=== PATIENT | female | born 1975 | race Two or more races ===

== ENCOUNTER → 2021-12-12 10:53 | Outpatient (BNVA) | payer OTHER, SELFPAY | PROVIDERS: PCP Internal Medicine; Visit Provider Nurse Practitioner Family | DX: F45.8 Other somatoform disorders (principal); G47.19 Other hypersomnia; R06.83 Snoring; G47.9 Sleep disorder, unspecified; M54.2 Cervicalgia; M26.609 Unspecified temporomandibular joint disorder, unspecified side | CPT/HCPCS: 99202 ==

== ENCOUNTER → 2021-12-22 15:48 | Outpatient (REF) | payer OTHER, SELFPAY | LOC: HO.SL 15:48 | PROVIDERS: Visit Provider Nurse Practitioner Family | DX: F45.8 Other somatoform disorders (principal); G47.19 Other hypersomnia; G47.9 Sleep disorder, unspecified; R06.83 Snoring | CPT/HCPCS: 95806 ==

== ENCOUNTER → 2022-05-04 11:32 | Outpatient (BNVA) | payer OTHER, SELFPAY | PROVIDERS: PCP Internal Medicine; Visit Provider Nurse Practitioner Family | DX: R00.0 Tachycardia, unspecified (principal); R06.02 Shortness of breath; G43.909 Migraine, unspecified, not intractable, without status migrainosus; M26.609 Unspecified temporomandibular joint disorder, unspecified side; M79.89 Other specified soft tissue disorders | CPT/HCPCS: 99212 ==

== ENCOUNTER → 2022-07-20 11:24 | Outpatient (BNVA) | payer OTHER, SELFPAY | PROVIDERS: PCP Internal Medicine; Visit Provider Nurse Practitioner Family | DX: G43.909 Migraine, unspecified, not intractable, without status migrainosus (principal); M79.89 Other specified soft tissue disorders; M54.50 Low back pain, unspecified; M79.604 Pain in right leg; M79.605 Pain in left leg; R20.2 Paresthesia of skin | CPT/HCPCS: 99212 ==

== ENCOUNTER 2022-07-25 12:15 | Outpatient (REF) | payer OTHER, SELFPAY ==
--- NOTE | ~2022-07-25 | XR_ITS ---
EXAMINATION: XR LUMBOSACRAL SPINE WITH OBLIQUES CLINICAL INFORMATION: Chronic lower back pain with right-sided sciatica. COMPARISON: None available. TECHNIQUE: AP, both oblique, and lateral views of the lumbar spine. Lateral view of the lumbosacral junction. FINDINGS: There are 5 jej-[id number] lumbar vertebra. No acute fracture or spondylolisthesis is identified. The intervertebral disc spaces are maintained. Mild anterior and lateral marginal spurring is present at multiple levels. There is facet arthropathy seen at the L5-S1 level and, to a lesser extent, at the L4-L5 level bilaterally and left side of L3-L4. There is no instability noted on flexion-extension views. No evidence of spondylolysis on oblique views. No significant sacroiliac joint abnormalities appreciated with no widening or fusion seen. XR/XR lumbar spine 6V w bending IMPRESSION: Bilateral facet arthropathy as described above. No acute fracture, spondylolisthesis, or spondylolysis identified.
== END 2022-07-25 12:16 | disposition home or self-care (01) ==
LOC: HO.XRAY 12:15
PROVIDERS: Visit Provider Nurse Practitioner Family
DX: M54.50 Low back pain, unspecified (principal)
CPT/HCPCS: 72114

== ENCOUNTER → 2022-07-27 13:05 | Outpatient (BNVA) | payer OTHER, SELFPAY | PROVIDERS: PCP Internal Medicine; Visit Provider Registered Nurse Emergency | DX: M47.26 Other spondylosis with radiculopathy, lumbar region (principal); R20.2 Paresthesia of skin; M53.3 Sacrococcygeal disorders, not elsewhere classified | CPT/HCPCS: 99202 ==

== ENCOUNTER 2022-08-31 09:10 | Outpatient (REF) | payer OTHER, SELFPAY ==
--- NOTE | 2022-08-31 | EMG_ITS ---
Bilateral tibial and peroneal motor studies were performed. Bilateral superficial peroneal and sural sensory studies were performed. Tibial H reflexes were obtained and paraspinal muscles were tested with a needle. IMPRESSION: Chronic right lower lumbar radiculopathy. MD ANDREWS Chaudhary/AVANI / [id number]
== END 2022-08-31 09:11 | disposition home or self-care (01) ==
LOC: HO.NEURO 09:10
PROVIDERS: PCP Internal Medicine; Visit Provider Nurse Practitioner Family
DX: M79.604 Pain in right leg (principal); M79.605 Pain in left leg; M54.50 Low back pain, unspecified
CPT/HCPCS: 95886; 95911

== ENCOUNTER 2022-09-22 13:36 | Outpatient (REF) | payer OTHER, SELFPAY ==
--- NOTE | ~2022-09-22 | MR_ITS ---
EXAMINATION: MR LUMBAR SPINE WITHOUT CONTRAST CLINICAL INFORMATION: Radiculopathy of the lumbar spine. COMPARISON: Lumbar spine radiograph 07/25/2022. TECHNIQUE: MRI of the lumbar spine was obtained using routine sequences without contrast. FINDINGS: Alignment is normal in the sagittal dimension. Vertebral heights are preserved. No acute bone marrow signal changes. There is disc desiccation at multiple levels without substantial loss of intervertebral disc height. The tip of the conus medullaris is located at the level of L2. 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 Visualized distal cord signal intensity is normal. At T12-L1 the annular contour is normal. No canal or neuroforaminal compromise. At L1-L2 the annular contour is normal. No canal stenosis. No mass effect on the traversing or foraminal nerve roots. At L2-L3 the annular contour is normal. No canal stenosis. No mass effect on the traversing or foraminal nerve roots. At L3-L4 the annular contour is normal. No canal stenosis. No mass effect on the traversing or foraminal nerve roots. At L4-L5 the annular contour is normal. Bilateral facet degenerative change. No canal stenosis. No mass effect on the traversing or foraminal nerve roots. At L5-S1 there is a right subarticular annular fissure associated with a slightly bulging disc. Bilateral facet degenerative change. No canal stenosis. No mass effect on the traversing or foraminal nerve roots. Limited visualization of the retroperitoneal anatomy reveals no abnormal finding. Psoas and paraspinal muscle groups are grossly symmetric. MR/MR lumbar spine wo con IMPRESSION: There is a right subarticular annular fissure associated with a bulging disc at L5-S1. There is degenerative arthrosis of the articular facet joints at L4-L5 and L5-S1. Otherwise unremarkable examination. No canal stenosis. No mass effect on the traversing or foraminal nerve roots.
== END 2022-09-22 13:37 | disposition home or self-care (01) ==
LOC: HO.MRI 13:36
PROVIDERS: PCP Internal Medicine; Visit Provider Registered Nurse Emergency
DX: M54.16 Radiculopathy, lumbar region (principal); R20.2 Paresthesia of skin
CPT/HCPCS: 72148

== ENCOUNTER 2022-09-25 13:24 | Outpatient (AMB) | payer OTHER, SELFPAY ==
[2022-09-25 13:31] VITALS: BMI 30.3
--- NOTE | 2022-09-25 13:31 | MHC.OFFVIS ---
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 Complaints include pain over varicosities, swelling of lower extremities, cramping, fatigue, and heaviness of the lower extremities. It has been affecting there daily activities including walking and grocery shopping. It is noted more so in right leg. Patient denies any previous venous surgery or injections. Patient denies any history of DVT/ PE. Patient denies any history of phlebitis. Trial of compression includes - [id number] They now present for vascular evaluation regarding their varicose veins. [facility] Medical History Arthritis GERD (gastroesophageal reflux disease) Surgical History H/O laparoscopy H/O wrist surgery H/O: History of gallbladder removal History of partial hysterectomy Surgical history of tubal ligation Family History Mother Diabetes Vertigo HTN (hypertension) Father Liver cancer Lung cancer History of throat cancer Social History Alcohol intake: never Patient Tobacco Use Status: Current everyday Tobacco user Cigarette Packs Per Day: 10 Review of Systems Const Reports as per HPI ENT Reports no additional complaints Card Denies chest pain, Denies chest pain at rest and Denies chest pain with activity Resp Denies chest congestion and Denies cough GI Reports no additional complaints Musc Details: pain over varicosities, aching of lower extremities, swelling, cramping, heaviness and tiredness, itching Denies abnormal gait Skin/Breast Reports pruritus and Denies wounds Neuro Reports no additional complaints and Denies abnormal gait Psych Denies no additional complaints Physical Exam Vital Signs: BMI result Body Mass Index 30.3 Const General: cooperative, healthy appearing and comfortable Orientation/consciousness: oriented to person, oriented to place and oriented to time Neck Carotids: no bruits Chest Chest palpation & inspection: normal inspection of the chest and normal palpation of entire chest wall Resp Effort & Inspection: normal respiratory effort and able to speak in complete sentences Cardio Rate: regular rate Heart sounds: S1 normal heart sound present and S2 normal heart sound present Peripheral pulses: Peripheral pulses 2+ throughout GI Inspection: Yes normal to inspection Skin Other: +2 edema, CEAP Classification C4 - skin color changes Ep - Etiology Primary As - superficial veins P - reflux General skin exam: dry skin Neuro General: oriented to person, oriented to place and oriented to time Extrem Right lower extremity: full ROM, normal capillary refill and edema Left lower extremity: full ROM, normal capillary refill and edema Psych Mental Status: mental status grossly normal Assessment & Plan Assessment & Plan (1) Varicose veins of right lower extremity with inflammation: Code(s): I83.11 - Varicose veins of right lower extremity with inflammation Plan: In short, the patient has evidence of venous insufficiency. I have discussed the pathophysiology with the patient. In addition I have provided informational material regarding venous disease to the patient. We have discussed conservative measures including compression, elevation, and exercise. I have also provided a handout regarding appropriate use of compression stockings and where to purchase good compression stockings as well. I have taken the liberty of ordering venous insufficiency testing with the patient. They will follow up with me after testing. The patient had an opportunity to ask questions regarding the treatment plan. All questions were answered. Imaging studies, laboratory studies and physical exam results were discussed and reviewed in detail. No major barriers to understanding were identified. The patient expressed understanding and agreement with the above treatment plan. The patient is aware they should contact our office by phone for worsening of the current condition or the appearance of new symptoms. Thank you for allowing me to participate in the vascular care of this patient. If you have any questions or concerns regarding the treatment for the above condition please do not hesitate to contact me. The office telephone contact is [phone]. This note is constructed using voice recognition software. While every effort has been made to ensure accuracy, vacuum kettle cook errors may have been included. Thank you for allowing me to participate in the care of your patient. Yours sincerely, Bert Manning MD, FACS, R.P.V.I. Orders: Orders US venous duplex LE BI 1 Week I83.11 - Varicose veins of right lower extremity with inflammation Coding Level of Care Code New Pt Level 4 (79696) Diagnoses Varicose veins of right lower extremity with inflammation I83.11
== END 2022-09-25 13:58 | disposition home or self-care (01) ==
PROVIDERS: PCP Internal Medicine; Visit Provider Surgery Vascular Surgery
DX: I83.11 Varicose veins of right lower extremity with inflammation (principal)
CPT/HCPCS: 99203

== ENCOUNTER → 2022-09-25 13:24 | Outpatient (BNVA) | payer OTHER, SELFPAY | PROVIDERS: PCP Internal Medicine; Visit Provider Surgery Vascular Surgery | DX: I83.11 Varicose veins of right lower extremity with inflammation (principal) | CPT/HCPCS: 99202 ==

== ENCOUNTER 2022-10-04 10:24 | Outpatient (REF) | payer OTHER, SELFPAY ==
--- NOTE | ~2022-10-04 | US_ITS ---
EXAMINATION: US LOWER EXTREMITY VENOUS (REFLUX EXAM), BILATERAL CLINICAL INDICATION: Varicose veins of the right lower extremity COMPARISON: None. TECHNIQUE: Color flow triplex imaging and compression Doppler was performed to evaluate both the deep and the superficial systems bilaterally. To evaluate the superficial system, the examination was performed in the upright position. Color-flow Doppler ultrasound and compression ultrasound were utilized. In addition, maneuvers were utilized to demonstrate reflux. FINDINGS: RIGHT: 1. DEEP VENOUS ULTRASOUND OF THE RIGHT LOWER EXTREMITY: Common Femoral Vein: Compressible, normal respiratory variation and augmented flow. Popliteal Vein: Compressible, normal augmentation. Deep Venous Reflux: There is no evidence of reflux in the deep system in either the common femoral vein or the popliteal vein. There is no evidence of a Gutierrez's cyst. 2. SUPERFICIAL ULTRASOUND WITH DOPPLER OF RIGHT LOWER EXTREMITY: RIGHT GREAT SAPHENOUS VEIN: Saphenofemoral Junction: 7 mm. No reflux. Proximal Thigh: 5 mm. No reflux. Mid Thigh: 4 mm. No reflux. Above Knee: 5 mm. No reflux. Below Knee: 3 mm. No reflux. Mid Calf: 2 mm. No reflux. Ankle: 2 mm. No reflux. DUPLICATED GREAT SAPHENOUS VEIN: Yes, laterally Saphenofemoral junction: 4 mm. No reflux. Mid thigh: 2 mm. No reflux. RIGHT SMALL SAPHENOUS VEIN: Proximal: Not seen Distal: 2 mm. No reflux. PERFORATORS: None LEFT: 1. DEEP VENOUS ULTRASOUND OF THE LEFT LOWER EXTREMITY: Common Femoral Vein: Compressible, normal respiratory variation and augmented flow. Popliteal Vein: Compressible, normal augmentation. Deep Venous Reflux: There is no evidence of reflux in the deep system in either the common femoral vein or the popliteal vein. There is no evidence of a Gutierrez's cyst. 2. SUPERFICIAL ULTRASOUND WITH DOPPLER OF LEFT LOWER EXTREMITY: LEFT GREAT SAPHENOUS VEIN: Saphenofemoral Junction: 7 mm. No reflux. Proximal Thigh: 5 mm. No reflux. Mid Thigh: 4 mm. No reflux. Above Knee: 5 mm. No reflux. Below Knee: 3 mm. No reflux. Mid Calf: 2 mm. No reflux. Ankle: 2 mm. No reflux. DUPLICATED GREAT SAPHENOUS VEIN: Yes, laterally Saphenofemoral junction: 2 mm. No reflux Mid thigh: 2 mm. No reflux LEFT SMALL SAPHENOUS VEIN: Proximal: 2 mm. No reflux. Distal: 2 mm. No reflux. PERFORATORS: None US/US venous duplex LE BI IMPRESSION: 1. No evidence of deep venous thrombosis. 2. The saphenous systems are competent bilaterally. Abnormal lower extremity venous reflux times: Superficial and deep calf veins: >500 ms Femoropopliteal veins: >1000 ms Perforating veins: >350 ms Gume N, Katrina J, Milly L, Susan AK, Corey SS, Shankar Yougner M, Brenda WH. Definition of venous reflux in lower-extremity veins.J Vasc Surg. 2003; [phone].
== END 2022-10-04 10:25 | disposition home or self-care (01) ==
LOC: HO.US 10:24
PROVIDERS: Visit Provider Surgery Vascular Surgery
DX: I83.11 Varicose veins of right lower extremity with inflammation (principal)
CPT/HCPCS: 93970

== ENCOUNTER 2022-10-17 13:26 | Outpatient (AMB) | payer OTHER, SELFPAY ==
[2022-10-17 13:29] VITALS: BP 151/75; PULSE 112; RESP 14; O2SAT 96; BMI 30.3
--- NOTE | 2022-10-17 13:29 | MHC.OFFVIS ---
Intake Vital Signs 10/17/22 13:29 Height 4 ft 11 in Weight 150 lb BMI 30.3 BP 151/75 H Blood Pressure Location Lt brachial Position Sitting Respiration 14 Pulse 112 H Pulse Source Pulse Oximeter Pulse Oximetry (%) 96 Oxygen Delivery Method Room Air Intake Visit Reasons: Follow up / MRI Results Allergies Sulfa (Sulfonamide Antibiotics) Allergy (Mild, Verified 10/17/22 13:30) Unknown trimethoprim Allergy (Mild, Verified 10/17/22 13:30) Unknown cephalexin Allergy (Verified 10/17/22 13:30) Unknown Medication List - Last Reconciled 10/17/22 by Nia Zimmerman LPN acetaminophen (Tylenol) 325 mg PO QID PRN albuterol sulfate 90 mcg/actuation (Ventolin HFA) 2 puffs inhalation Q4-6H PRN 30 days atomoxetine 40 mg PO QAM cetirizine 10 mg PO DAILY PRN epinephrine 0.3 mg IM Q4H PRN escitalopram oxalate (Lexapro) 10 mg PO DAILY gabapentin mg PO galcanezumab-gnlm (Emgality Pen) 120 mg subcut ONCE 30 days omeprazole 20 mg PO DAILY ondansetron 4 mg PO Q8H riboflavin (vitamin B2) (Vitamin B-2) 200 mg PO QID tizanidine 2 mg PO BID PRN 30 days zolpidem 5 mg PO BEDTIME PRN HPI HPI Comments History of Present Illness Details Ann is a very pleasent 46 year old female who presents to the office today for follow up to review MRI. MRI results reviewed with patient, as per below. Patient reports that her pain persists. She has not started PT, she thought that was on hold until after MRI. She has been doing HEP without relief, taking tylenol with minimal relief. She will take tizanidine which helps some but causes her to be drowsy so she uses sparingly. She continues to report pain worse with standing, doing the dishes, cooking, going up stairs and sitting for extended period of time. She was evaluated by vascular for the BLE edema, has venous US and follow up appt is scheduled with them in a couple weeks. She is using compression as tolerated. Prior: Ann is a pleasant 46-year-old female who presents today on referral from Neurology for evaluation and management of her chronic lower back pain. Patient is also complaining of bilateral pedal edema, numbness, pain, discoloration and alteration in temperature. Patient complaining of lower back pain for last 4 years that has been getting progressively worse. Patient has been taking Tylenol as needed for her pain with minimal relief. She has not tried physical therapy recently, she states that she is fearful that it is going to exacerbate her pain. She currently also takes gabapentin as prescribed by her doctor which she reports makes her sleepy but does not improve her pain. She was recently seen by Neurology and had an x-ray, results pending, EMG is ordered and scheduled for next week. Patient reports the pain is worse on the right side with radiation down into her buttock and thigh, at times down her right leg into her foot. Pain is exacerbated by sitting for too long, standing for too long, movement, walking and doing housework. Pain today 08/14. Patient reports the pain is impacting her ability to sleep normally, perform activities of daily living and to function normally. In terms of muscle damage condition is described as pulsing, throbbing, pounding, shooting, pinching, wrenching, tingling, sore, hurting, aching, heavy, tiring, exhausting, spreading, radiating, piercing, cool and cold. Patient denies red flag symptoms including loss of bowel or bladder or saddle anesthesia. Patient also complaining of bilateral feet swelling, paresthesia, burning and pins and needles that has been going on for approximately 1 year. She was initially referred to podiatry for evaluation which she says was without findings. Has never seen vascular or had any vascular studies. Patient is taking gabapentin which she states does not help with her bilateral foot pain. Past medical history significant for arthritis, headaches and GERD. Past surgical history significant for wrist surgery, , gallbladder removal, partial hysterectomy, tubal ligation. Patient endorses 1/2 pack a day tobacco use, denies alcohol or illicit drug use. Patient denies implantable devices, defibrillator or pacemaker. COUNT INCLUDES THE [facility] Medical History Arthritis GERD (gastroesophageal reflux disease) Surgical History H/O laparoscopy H/O wrist surgery H/O: History of gallbladder removal History of partial hysterectomy Surgical history of tubal ligation Family History Mother Diabetes Vertigo HTN (hypertension) Father Liver cancer Lung cancer History of throat cancer Social History Alcohol intake: never Patient Tobacco Use Status: Current everyday Tobacco user Cigarette Packs Per Day: 10 Review of Systems Const All systems reviewed & are unremarkable except as noted in HPI and below Physical Exam Vital Signs: Last Vital Signs Pulse 112 H 10/17/22 13:29 Resp 14 10/17/22 13:29 BP 151/75 H 10/17/22 13:29 Pulse Ox 96 10/17/22 13:29 Oxygen Delivery Method Room Air 10/17/22 13:29 BMI result Body Mass Index 30.3 Const General: cooperative Orientation/consciousness: patient oriented x3 Resp Effort & Inspection: normal respiratory effort and able to speak in complete sentences Back/Spine/Pelvis Other: Able to transition from sit to stand unassisted. Ambulates with bilaterally normal heel strike and toe off Visual inspection without gross abnormality Tender to palpation over PSIS bilaterally Nontender to palpation over midline vertebrae Strength: 5/5 BLE Gaenslen positive bilaterally MAYA positive bilaterally Thigh thrust positive bilaterally Neuro General: patient oriented x3 Results Reviewed Results Reviewed: 09/22/2022 MR LUMBAR SPINE WITHOUT CONTRAST FINDINGS: Alignment is normal in the sagittal dimension. Vertebral heights are preserved. No acute bone marrow signal changes. There is disc desiccation at multiple levels without substantial loss of intervertebral disc height. The tip of the conus medullaris is located at the level of L2. 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 Visualized distal cord signal intensity is normal. At T12-L1 the annular contour is normal. No canal or neuroforaminal compromise. At L1-L2 the annular contour is normal. No canal stenosis. No mass effect on the traversing or foraminal nerve roots. At L2-L3 the annular contour is normal. No canal stenosis. No mass effect on the traversing or foraminal nerve roots. At L3-L4 the annular contour is normal. No canal stenosis. No mass effect on the traversing or foraminal nerve roots. At L4-L5 the annular contour is normal. Bilateral facet degenerative change. No canal stenosis. No mass effect on the traversing or foraminal nerve roots. At L5-S1 there is a right subarticular annular fissure associated with a slightly bulging disc. Bilateral facet degenerative change. No canal stenosis. No mass effect on the traversing or foraminal nerve roots. Limited visualization of the retroperitoneal anatomy reveals no abnormal finding. Psoas and paraspinal muscle groups are grossly symmetric. IMPRESSION: There is a right subarticular annular fissure associated with a bulging disc at L5-S1. There is degenerative arthrosis of the articular facet joints at L4-L5 and L5-S1. Otherwise unremarkable examination. No canal stenosis. No mass effect on the traversing or foraminal nerve roots. Assessment & Plan Assessment & Plan (1) Sacroiliac joint dysfunction of both sides: Code(s): M53.3 - Sacrococcygeal disorders, not elsewhere classified (2) Lumbar spondylosis: Code(s): M47.816 - Spondylosis without myelopathy or radiculopathy, lumbar region (3) Facet arthritis of lumbar region: Code(s): M47.816 - Spondylosis without myelopathy or radiculopathy, lumbar region (4) Lumbar radiculopathy: Code(s): M54.16 - Radiculopathy, lumbar region (5) Paresthesia of bilateral legs: Code(s): R20.2 - Paresthesia of skin Giovanna Juarez is a pleasant 46-year-old female who presented to the office today for follow up bilateral lower back pain. MRI reviewed with patient today, no concerns for nerve root compression. History, physical exam and provocative physical exam consistent with bilateral sacroiliac joint dysfunction and lumbar facet arthropathy. Will trial baclofen in place of tizanidine to see if this offers relief of pain with less sedating effects. Diclofenac 50 po daily prn pain. Patient advised do not take any OTC NSAIDS while taking this medication. Order for PT eval and treat placed. Patient will call after several weeks and update if PT is helping her pain. If no relief with NSAIDS/PT will schedule for fluoroscopy guided bilateral diagnostic SIJ injections with local anesthetic. Discussed options for treatment including diagnostic interventional testing, steroid injections, peripheral nerve stimulation with Sprint, RFA and more permanent neuromodulation. All questions and concerns have been answered and patient agrees with the plan. Follow up after injections and sooner if needed. Follow up after PT, sooner if needed. Orders: Orders PT Evaluation and Treatment Today M53.3 - Sacrococcygeal disorders, not elsewhere classified Medications: New baclofen 5 mg PO BID PRN 30 tabs 0RF muscle spasm diclofenac sodium 50 mg PO DAILY PRN 30 tabs 0RF pain Discontinued tizanidine no driving or drinking alcohol while taking this medication. may cause drowsiness. Discontinued Reason: Doctor's Order 2 mg PO BID 30 days PRN 60 tabs 0RF muscle spasticity Coding Level of Care Code Est Pt Level 4 (02549) Diagnoses Sacroiliac joint dysfunction of both sides M53.3 Lumbar spondylosis M47.816 Facet arthritis of lumbar region M47.816 Lumbar radiculopathy M54.16 Paresthesia of bilateral legs R20.2
== END 2022-10-17 14:20 | disposition home or self-care (01) ==
PROVIDERS: PCP Internal Medicine; Visit Provider Registered Nurse Emergency
DX: M53.3 Sacrococcygeal disorders, not elsewhere classified (principal); M47.816 Spondylosis without myelopathy or radiculopathy, lumbar region; M54.16 Radiculopathy, lumbar region; R20.2 Paresthesia of skin
CPT/HCPCS: 99214

== ENCOUNTER → 2022-10-17 13:26 | Outpatient (BNVA) | payer OTHER, SELFPAY | PROVIDERS: PCP Internal Medicine; Visit Provider Registered Nurse Emergency | DX: M53.3 Sacrococcygeal disorders, not elsewhere classified (principal); M47.26 Other spondylosis with radiculopathy, lumbar region; R20.2 Paresthesia of skin | CPT/HCPCS: 99212 ==

== ENCOUNTER 2022-10-26 13:52 | Outpatient (AMB) | payer OTHER, SELFPAY ==
[2022-10-26 14:16] VITALS: BMI 30.3
--- NOTE | 2022-10-26 14:16 | MHC.OFFVIS ---
Intake Vital Signs 10/26/22 14:16 Height 4 ft 11 in Weight 150 lb BMI 30.3 Intake Visit Reasons: follow up 10/04/2022 Intake Note: follow up 10/04/2022, pt states bilateral LE swelling w/ pins and needles, Right LE worse than Left LE Accompanied by: Self / Same As Patient Allergies Sulfa (Sulfonamide Antibiotics) Allergy (Mild, Verified 10/26/22 14:18) Unknown trimethoprim Allergy (Mild, Verified 10/26/22 14:18) Unknown cephalexin Allergy (Verified 10/26/22 14:18) Unknown HPI follow up 10/04/2022 HPI Details Very pleasant 46-year-old female presents for follow-up surveillance regarding venous insufficiency. She notes some swelling and discomfort of the lower extremities. She has had no interval changes. She now presents for follow-up with venous insufficiency testing. [facility] Medical History GERD (gastroesophageal reflux disease) Arthritis Surgical History H/O: History of gallbladder removal History of partial hysterectomy H/O laparoscopy Surgical history of tubal ligation H/O wrist surgery Family History Mother Diabetes Vertigo HTN (hypertension) Father Liver cancer Lung cancer History of throat cancer Social History Alcohol intake: never Patient Tobacco Use Status: Current everyday Tobacco user Cigarette Packs Per Day: 10 Review of Systems Const All systems reviewed & are unremarkable except as noted in HPI and below Reports no additional complaints ENT Reports Normal hearing present Card Denies chest pain, Denies chest pain at rest, Denies chest pain with activity and Denies pedal edema Resp Denies cough GI Denies abdominal pain Musc Denies abnormal gait, Denies muscle cramps and Denies radiating pain into limb Skin/Breast Denies skin ulcer and Denies wounds Neuro Reports Normal hearing present and Denies abnormal gait Psych Reports no additional complaints Physical Exam Vital Signs: BMI result Body Mass Index 30.3 Const General: cooperative, healthy appearing and comfortable Orientation/consciousness: oriented to person, oriented to place and oriented to time HEENT Head: Yes normal to inspection Neck Neck: Yes normal visual inspection Carotids: no bruits Chest Chest palpation & inspection: normal inspection of the chest Resp Effort & Inspection: normal respiratory effort and able to speak in complete sentences Auscultation: clear to auscultation bilaterally, no crackles, no rales, no rhonchi and no wheezes Cardio Rate: regular rate Rhythm: regular rhythm Heart sounds: S1 normal heart sound present and S2 normal heart sound present Bruits: no carotid bruits Peripheral pulses: Peripheral pulses 2+ throughout GI Inspection: Yes normal to inspection Skin Wounds: no wounds Hair: normal Neuro General: oriented to person, oriented to place and oriented to time Cranial nerves: Yes CN's II-XII intact bilaterally and Yes Normal hearing present Cognition (Neuro): normal cognition Motor exam (neuro): 5/5 motor strength present throughout Extrem Other: venous exam: No significant superficial varicosities or spider telangiectasias, minimal edema General: No clubbing, No cyanosis and No edema Psych Appearance: grossly normal Mental Status: mental status grossly normal Speech and movement: Normal speech and movement present Results Reviewed Results Reviewed: Brief summary of venous insufficiency testing is as follows: right great saphenous vein: negative right small saphenous vein: negative right accessory vein: none present left great saphenous vein: negative left small saphenous vein: negative left accessory vein: none present Please note there is no evidence of any venous aneurysms or significant tortuosity Assessment & Plan Assessment & Plan (1) Varicose veins of right lower extremity with inflammation: Code(s): I83.11 - Varicose veins of right lower extremity with inflammation Plan: In short patient is negative for any significant venous insufficiency a. I do believe that some of her lower extremity discomfort may be more related to her back. We did discuss routine conservative measures including compression elevation and exercise. She will follow up with us on an as-needed basis. Thank you for allowing us to assist in her care. Coding Level of Care Code Est Pt Level 4 (19761) Diagnoses Varicose veins of right lower extremity with inflammation I83.11
== END 2022-10-26 14:45 | disposition home or self-care (01) ==
PROVIDERS: PCP Internal Medicine; Visit Provider Surgery Vascular Surgery
DX: I83.11 Varicose veins of right lower extremity with inflammation (principal)
CPT/HCPCS: 99213

== ENCOUNTER → 2022-10-26 13:52 | Outpatient (BNVA) | payer OTHER, SELFPAY | PROVIDERS: PCP Internal Medicine; Visit Provider Surgery Vascular Surgery | DX: I83.11 Varicose veins of right lower extremity with inflammation (principal) | CPT/HCPCS: 99212 ==

== ENCOUNTER 2022-11-27 15:00 | Outpatient (RCR) | payer OTHER, SELFPAY ==
--- NOTE | 2022-11-02 16:47 | MHC.PT.EP ---
[facility] [place] Office [place] Office [place] Office [address] [phone] F: [phone] F: [phone] F: [phone] F: [phone] Physical Therapy Plan of Care Date of Evaluation: 11/02/22 Date of Surgery: Diagnosis: bilateral sacroiliac joint dysfunction (MD Dx) bilateral lumbar radiculopathy with R annular fissure at L5/S1 seen on MRI (PT Dx) Assessment: Patient is a pleasant 46 y.o. female who is referred to PT by Divya Peng CNP with Dx of bilateral sacroiliac joint dysfunction. PT diagnosis is bilateral lumbar radiculopathy with R annular fissure at L5/S1 seen on MRI. Patient impairments include poor posture, antalgic gait, limited lumbar ROM, weakness in hips and core. Patient current functional limitations are standing to wash dishes, sweep/mop, cleaning, prolonged walking (more than 15 mins), prolonged sitting (more than 30 mins), sits down to get dressed, pinch in R low back with lifting R arm, squat and get up from low surfaces, difficulty sleeping. Patient will benefit from skilled PT to address aforementioned impairments and functional limitations to meet established goals. Frequency and Duration: The patient will be seen 2x/week for 4 weeks Short Term Goals: 2 weeks Patient demonstrates consistency and independence with HEP to self manage symptoms. Patient is able to understand and perform movements that centralize bilateral LE symptoms. Mortar Carrier Goals: 4 weeks Patient presents with increased R hip flexion 5/5 to ascend/descend stairs reciprocally with railing. Patient presents with increased lumbar extension 15 degrees to improve posture and to be able to stand to wash dishes. Treatment Plan: Modalities to reduce pain, spasms and effusion. Manual therapy to restore motion and function. Therapeutic exercise to improve strength and flexibility. Neuromuscular re-education for posture and balance. Therapeutic activities to return to functional activities of daily living. Electronically signed by: Emma Hawkins, PT, DPT Please sign and return to therapist. Thank you for your referral.
--- NOTE | 2023-01-16 11:50 | MHC.PT.DC ---
[facility] [place] Office [place] Office [place] Office [address] [phone] F: [phone] F: [phone] F: [phone] F: [phone] Physical Therapy Discharge Report Diagnosis: bilateral sacroiliac joint dysfunction (MD Dx) bilateral lumbar radiculopathy with R annular fissure at L5/S1 seen on MRI (PT Dx) Date of Surgery: Date of Evaluation: 11/02/22 Date of Discharge: 01/16/23 Treatments to Date: 3 Cancellations to Date: No Shows to Date: 6 Discharge Status: Patient Elected to Stop Visit Non-compliance Discharge Summary: Katerina only attended 3 PT sessions then ceased attending PT on her own accord, not showing to the remainder of her scheduled visits. The assessment of her last PT treatment on 11/06/2022 reads, She persists with radicular symptoms after prolonged prone lying and manual therapy to promote extension. Therefore I wanted to trial traction, discussed this intervention with patient and she agreed to try. She was able to tolerate a therapeutic level of 50# and reported centralization of symptoms in R foot with slight increase in low back afterwards. Electronically signed by: Emma Hawkins, PT, DPT Please sign and return to therapist. Thank you for your referral.
== END 2023-01-16 11:51 | disposition home or self-care (01) ==
LOC: HO.PT 15:00
PROVIDERS: PCP Internal Medicine; Visit Provider Registered Nurse Emergency
DX: M53.3 Sacrococcygeal disorders, not elsewhere classified (principal); M47.816 Spondylosis without myelopathy or radiculopathy, lumbar region; M54.16 Radiculopathy, lumbar region
CPT/HCPCS: 97012; 97110; 97140; 97161; 97535

== ENCOUNTER 2023-01-26 13:54 | Outpatient (AMB) | payer OTHER, SELFPAY ==
[2023-01-26 14:29] VITALS: BP 124/84; BMI 30.3
--- NOTE | 2023-01-26 14:29 | MHC.OFFVIS ---
Intake Vital Signs 01/26/23 14:29 Height 4 ft 11 in Weight 150 lb BMI 30.3 BP 124/84 Blood Pressure Location Rt brachial Position Sitting Intake Visit Reasons: 2m f/u headache - Confirmed Intake Note: Patient presents for 2 month follow up headache. I still get them but there a little better since the injections. Allergies Sulfa (Sulfonamide Antibiotics) Allergy (Mild, Verified 01/26/23 14:31) Unknown trimethoprim Allergy (Mild, Verified 01/26/23 14:31) Unknown cephalexin Allergy (Verified 01/26/23 14:31) Unknown Medication List - Last Reconciled 01/26/23 by CIERA Patterson acetaminophen (Tylenol) 325 mg PO QID PRN albuterol sulfate 90 mcg/actuation (Ventolin HFA) 2 puffs inhalation Q4-6H PRN 30 days atomoxetine 40 mg PO QAM baclofen 5 mg PO BID PRN buspirone 7.5 mg PO BID cetirizine 10 mg PO DAILY PRN diclofenac sodium 50 mg PO DAILY PRN epinephrine 0.3 mg IM Q4H PRN escitalopram oxalate (Lexapro) 10 mg PO DAILY gabapentin mg PO galcanezumab-gnlm (Emgality Pen) 120 mg subcut ONCE 30 days lorazepam (Ativan) 0.5 mg PO DAILY PRN omeprazole 20 mg PO DAILY ondansetron 4 mg PO Q8H riboflavin (vitamin B2) (Vitamin B-2) 200 mg PO QID zolpidem 5 mg PO BEDTIME PRN HPI HPI Comments History of Present Illness Details 47-yr-old female presents for f/u visit. Pt reports she was started on Lorazepam and then Buspirone to help her manage panic attacks- which is starting to help, will increase her Buspirone to tid in Feb. She is f/b psychiatry. She also had a recent ER eval of food becoming stuck in her throat- she has a h/o esophageal narrowing She underwent a f/u esophageal biopsy and esophageal dilation. 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 She is trying to reduce her smoking. Her PCP recently ordered her patches. The headaches have been better since starting Emgality. Now she is having 1-2 migraines days per every 2 weeks, sometimes can have 3 migarien days in a week. The migraines are much less severe. Currently using Tylenol- as she thought she could not use it with the Emgality. She does continue to have low back which moves into the RLE. Upon review of the L-spine XR, MRI, and EMG- showing L5-S1 disc bulge and chronic right lower lumbar radiculopathy. We did send her to Pain management, who referred her to PT. PT was unhelpful. She will consider trying a lumbar injection when she sees pain management again. 08/31/22, BLE EMG/NCS IMPRESSION: Chronic right lower lumbar radiculopathy. 09/22/22, MR/MR lumbar spine wo con IMPRESSION: There is a right subarticular annular fissure associated with a bulging disc at L5-S1. There is degenerative arthrosis of the articular facet joints at L4-L5 and L5-S1. Otherwise unremarkable examination. No canal stenosis. No mass effect on the traversing or foraminal nerve roots. 07/25/22, XR/XR lumbar spine 6V w bending IMPRESSION: Bilateral facet arthropathy as described above. No acute fracture, spondylolisthesis, or spondylolysis identified. [facility] Medical History GERD (gastroesophageal reflux disease) Arthritis Surgical History H/O: History of gallbladder removal History of partial hysterectomy H/O laparoscopy Surgical history of tubal ligation H/O wrist surgery Family History Mother Diabetes Vertigo HTN (hypertension) Father Liver cancer Lung cancer History of throat cancer Social History Alcohol intake: never Patient Tobacco Use Status: Current everyday Tobacco user Cigarette Packs Per Day: 10 Review of Systems Const All systems reviewed & are unremarkable except as noted in HPI and below Physical Exam Vital Signs: Last Vital Signs BP 124/84 01/26/23 14:29 BMI result Body Mass Index 30.3 Const General: cooperative and no acute distress Orientation/consciousness: patient oriented x3 HEENT Head: Yes normocephalic Resp Effort & Inspection: normal respiratory effort and able to speak in complete sentences Neuro General: patient oriented x3, gait normal and CN's II-XI intact bilaterally Cognition (Neuro): normal cognition Motor exam (neuro): 5/5 motor strength present throughout Psych Appearance: grossly normal Mental Status: mental status grossly normal Speech and movement: Normal speech and movement present Affect: normal affect Attitude: cooperative Thought process: Normal thought process present Thought content: Normal thought content present Insight: Good insight present (Psych) Judgement: Good judgement present (Psych) Assessment & Plan Assessment & Plan (1) Migraine: Code(s): G43.909 - Migraine, unspecified, not intractable, without status migrainosus (2) Low back pain: Code(s): M54.50 - Low back pain, unspecified (3) Lumbar spondylosis: Code(s): M47.816 - Spondylosis without myelopathy or radiculopathy, lumbar region (4) Lumbar radiculopathy: Code(s): M54.16 - Radiculopathy, lumbar region Plan For sleep: Monitor sleep Monitor TMJD s/s. Recent HST- no evidence for sleep apnea. For low back pain, BLE swelling/hypoesthesia/pain: Reviewed recent work-up: L5-S1 disc bulge and chronic right lower lumbar radiculopathy. F/u w/ pain management as scheduled. ? For acute headache treatment: Continue Sumatriptan 50-100mg prn at onset of migraine, may repeat in 2 hrs, max 200mg/day. Acute migraine medication contraindications: Sumatripatn 25-50mg- ineffective. Excedrin- ineffective. Iburpfen- ineffective. Migraine prevention medication contraindications: none at this time ? For headache prevention medication: Continue Riboflavin 400mg qam Continue Emgality 120mg sc q month. Previous preventive migraine medication trials: Topiramate 50mg- ineffective. Magnesium 400mg qhs- not effective Migraine prevention medication contraindications: Amitriptyline- d/t tachycardia. BBs- d/t asthma/SOB s/s ? f/u in 5-6 months or sooner prn. Medications: New sumatriptan succinate 50 - 100 mg orally at onset of headache, may repeat in 2 hrs PRN; max 2 tabs per day or 4 tabs/week (may take with Tylenol) 12 tabs 6RF migraine headache 30 days Coding Level of Care Code Est Pt Level 4 (38085) Diagnoses Migraine G43.909 Low back pain M54.50 Lumbar spondylosis M47.816 Lumbar radiculopathy M54.16
== END 2023-01-26 15:21 | disposition home or self-care (01) ==
PROVIDERS: PCP Internal Medicine; Visit Provider Nurse Practitioner Family
DX: G43.909 Migraine, unspecified, not intractable, without status migrainosus (principal); M54.50 Low back pain, unspecified; M47.816 Spondylosis without myelopathy or radiculopathy, lumbar region; M54.16 Radiculopathy, lumbar region
CPT/HCPCS: 99214

== ENCOUNTER → 2023-01-26 13:54 | Outpatient (BNVA) | payer OTHER, SELFPAY | PROVIDERS: PCP Internal Medicine; Visit Provider Nurse Practitioner Family | DX: G43.909 Migraine, unspecified, not intractable, without status migrainosus (principal); M54.50 Low back pain, unspecified; M47.816 Spondylosis without myelopathy or radiculopathy, lumbar region; M54.16 Radiculopathy, lumbar region | CPT/HCPCS: 99212 ==

== ENCOUNTER 2024-07-30 11:25 | Outpatient (AMB) | payer OTHER, SELFPAY ==
--- NOTE | 2024-07-30 11:26 | MHC.OFFVIS ---
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 Peripheral edema is noted, with persistent swelling in the feet despite diuretic therapy. The edema is associated with coldness and discoloration, particularly in cold environments. The patient has a history of sciatica, with radiating pain and numbness in the legs. MRI findings indicate arthritis, but no neural impingement. Neuropathic symptoms include burning, tingling, and sensitivity in the feet, with limited relief from previous treatments. A nerve conduction study is planned to assess these symptoms further. 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 and requires frequent rest - Aberrant Drug Related Behaviors: None reported [facility] Medical History GERD (gastroesophageal reflux disease) Arthritis Surgical History H/O: History of gallbladder removal History of partial hysterectomy H/O laparoscopy Surgical history of tubal ligation H/O wrist surgery Family History Mother Diabetes Vertigo HTN (hypertension) Father Liver cancer Lung cancer History of throat cancer Social History Alcohol intake: never Patient Tobacco Use Status: Current everyday Tobacco user Cigarette Packs Per Day: 10 Review of Systems Const Details: - Musculoskeletal: Reports chronic low back pain, radiating posterior thighs bilaterally, and peripheral edema - Neurological: Reports numbness, tingling, and burning in feet - Cardiovascular: Denies chest pain or palpitations - Respiratory: Denies dyspnea or cough - Gastrointestinal: Denies abdominal pain or changes in bowel habits Physical Exam Vital Signs: Last Vital Signs Pulse 97 07/30/24 11:27 Resp 16 07/30/24 11:27 BP 139/77 07/30/24 11:27 Pulse Ox 99 07/30/24 11:27 Oxygen Delivery Method Room Air 07/30/24 11:27 BMI result Body Mass Index 29.5 Const Other: General: awake, alert, oriented. Answers questions appropriately. Fully engaged in examination. Skin: warm, dry, intact HEENT: Normocephalic. Hearing intact. Cardiac: External chest normal in appearance. Respiratory: No cough, audible wheezing or stridor. Abdomen: without gross distension. MS: No obvious swelling or deformities. Able to stand on bilateral tiptoes and bilateral heels.? Able to transition from sit to stand unassisted. Ambulates with bilaterally normal heel strike and toe off SLR negative bilaterally Facet loading positive Tenderness over midline lumbar vertebrae and lumbar paraspinal muscles Nontender or bilateral PSIS Neurological: Oriented to person, place, time and situation. Thought process intact. No gait abnormalities appreciated. Psychiatric: Appropriate mood and affect. Good judgment and insight. Results Reviewed Results Reviewed: 09/22/2022 MR LUMBAR SPINE WITHOUT CONTRAST FINDINGS: Alignment is normal in the sagittal dimension. Vertebral heights are preserved. No acute bone marrow signal changes. There is disc desiccation at multiple levels without substantial loss of intervertebral disc height. The tip of the conus medullaris is located at the level of L2. 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 Visualized distal cord signal intensity is normal. At T12-L1 the annular contour is normal. No canal or neuroforaminal compromise. At L1-L2 the annular contour is normal. No canal stenosis. No mass effect on the traversing or foraminal nerve roots. At L2-L3 the annular contour is normal. No canal stenosis. No mass effect on the traversing or foraminal nerve roots. At L3-L4 the annular contour is normal. No canal stenosis. No mass effect on the traversing or foraminal nerve roots. At L4-L5 the annular contour is normal. Bilateral facet degenerative change. No canal stenosis. No mass effect on the traversing or foraminal nerve roots. At L5-S1 there is a right subarticular annular fissure associated with a slightly bulging disc. Bilateral facet degenerative change. No canal stenosis. No mass effect on the traversing or foraminal nerve roots. Limited visualization of the retroperitoneal anatomy reveals no abnormal finding. Psoas and paraspinal muscle groups are grossly symmetric. IMPRESSION: There is a right subarticular annular fissure associated with a bulging disc at L5-S1. There is degenerative arthrosis of the articular facet joints at L4-L5 and L5-S1. Otherwise unremarkable examination. No canal stenosis. No mass effect on the traversing or foraminal nerve roots. Assessment & Plan Assessment & Plan (1) Sacroiliac joint dysfunction of both sides: Code(s): M53.3 - Sacrococcygeal disorders, not elsewhere classified Category: Medical (2) Lumbar spondylosis: Code(s): M47.816 - Spondylosis without myelopathy or radiculopathy, lumbar region Category: Medical (3) Facet arthritis of lumbar region: Code(s): M47.816 - Spondylosis without myelopathy or radiculopathy, lumbar region Category: Medical (4) Lumbar radiculopathy: Code(s): M54.16 - Radiculopathy, lumbar region Category: Medical (5) Paresthesia of bilateral legs: Code(s): R20.2 - Paresthesia of skin Category: Medical (6) Low back pain: Code(s): M54.50 - Low back pain, unspecified Category: Medical Plan The patient will undergo physical therapy to address chronic low back pain, as it has been two years since the last session. A nerve conduction study is scheduled to investigate neuropathic symptoms in the feet, including burning and tingling sensations. If no improvement with physical therapy diagnostic injections will be administered to evaluate arthritis in the back, with options for a temporary nerve stimulator or nerve ablation based on the response. I discussed with the patient the plan to repeat physical therapy and conduct a nerve conduction study to further evaluate her symptoms. We also talked about diagnostic injections to assess arthritis in her back, with potential follow-up treatments depending on the initial response. The patient was informed about the risks and benefits of each procedure, and the importance of maintaining a pain diary for insurance purposes was emphasized. Patient was informed and verbally consented to the use of an ambient scribe for clinic note documentation during this visit. Orders: Orders NE electromyogram (EMG) Today R20.2 - Paresthesia of skin PT Evaluation and Treatment Today M47.816 - Spondylosis without myelopathy or radiculopathy, lumbar region, M54.50 - Low back pain, unspecified NE nerve conduction velocity Today R20.2 - Paresthesia of skin Patient Instructions: - Attend scheduled physical therapy sessions. Patient requesting PT in [facility] proximity to her home - Complete the nerve conduction study as planned. - Follow up with the clinician after completing physical therapy and diagnostic procedures. Coding Level of Care Code Est Pt Level 3 (50052) Complex EM visit Add On G2211 Diagnoses Sacroiliac joint dysfunction of both sides M53.3 Lumbar spondylosis M47.816 Facet arthritis of lumbar region M47.816 Lumbar radiculopathy M54.16 Paresthesia of bilateral legs R20.2 Low back pain M54.50
[2024-07-30 11:27] VITALS: BP 139/77; PULSE 97; RESP 16; O2SAT 99; BMI 29.5
--- OUTSIDE RECORDS SUMMARY | 2024-07-30 13:35 | XMS_ITS | Clinical Summary ---
Author Organization [address] Address [address] [place] [id number] Phone Care Team Providers Care Ship Fastener Name Role Phone Tevin Quinteros MD Primary Care Provider [phone] Allergies Active Allergy Reactions Criticality Noted Date Comments Cephalexin 10/30/2012 Medications fesoterodine (TOVIAZ) 4 mg tabletIndicatio ns:Urgency of urination Take 1 tablet (4 mg total) by mouth daily. 30 tablet 5 01/14/2014 Active PROAIR RESPICLICK 90 mcg/actuation Inhale 2 puffs into the lungs every 4 (four) hours. 1 each 5 11/16/2015 Active azithromycin (ZITHROMAX Z-MARCIA) 250 MG Tab Take 2 tabs today and 1 tab for the next 4 days 6 each 11/16/2015 Active predniSONE (DELTASONE) 20 MG tablet Take 3 tabs ( 60 ) mg every morning for the next 5 days 15 tablet 11/16/2015 Active pregabalin (LYRICA) 100 MG capsule Take 100 mg by mouth 2 (two) times daily.. Active oxyCODONE-aceta minophen (PERCOCET) 10-325 mg per tablet Take 1 tablet by mouth.. Active ibuprofen (ADVIL,MOTRIN) 800 MG tablet Take 1 tablet (800 mg total) by mouth every 6 (six) hours as needed.. 60 tablet 01/20/2017 Active Active Problems Problem Noted Date Diagnosed Date Urgency of urination 01/14/2014 Renal mass 01/14/2014 Stress incontinence 01/14/2014 Lower urinary tract infectious disease 4 Overview (10/19/2015): IMO 2016 R2.1 update change Immunizations Immunization Administration Dates Next Due Influenza, split virus, trivalent, Preservative Free 02/21/2017 Social History Tobacco Use Types Packs/Day Years Used Date Smoking Tobacco: Every Day Smokeless Tobacco: Never Alcohol Use Standard Drinks/Week Comments No 0 (1 standard drink = 0.6 oz pur e alcohol) Comments No Sex and Gender Information Value Date Recorded Sex Assigned at Not on file Legal Sex Female 7:23 AM EST Gender Identity Not on file Sexual Orientation Not on file Last Filed Vital Signs Vital Sign Reading Time Taken Comments Blood Pressure 114/67 05/08/2017 1:27 PM EDT Pulse 72 05/08/2017 1:27 PM EDT Temperature 36.2 C (97.2 F) 05/08/2017 9:51 AM EDT Respiratory Rate 18 05/08/2017 1:27 PM EDT Oxygen Saturation 93% 05/08/2017 1:27 PM EDT Inhaled Oxygen Concentration - - Weight 59.9 kg (132 lb 0.9 oz) 05/08/2017 9:51 A M EDT Height 149.9 cm (4' 11 ) 09/25/2015 3:58 PM EDT Body Mass Index 26.67 09/25/2015 3:58 PM EDT Plan of Treatment Health Maintenance Due Date Last Done Comments HIV screening 1986 Hepatitis C screening 12/15/1991 Tetanus adult (Td q 10,TDAP once) 1993 Cervical cancer screening 1994 Breast cancer screening 2013 Lipid disorder screening 2013 Colon cancer screening, Colonoscopy 2018 Diabetes screening 05/08/2020 05/08/2017, 10/30/2012, 04/07/2011 Covid-19 vaccine series ( - 2023- season) 2023 Pneumococcal Vaccine (50+ years) (1 of 1 - PCV) 12/15/2023 Shingles vaccine (Shingrix) (1 of 2 - Shingrix (RZV) 2 Dose Standard Series) 12/15/2023 Influenza vaccine 10/06/2024 02/21/2017 RSV Immunization (1 - 1-dose 75+ series) 2048 Meningococcal Vaccine Aged Out No kary gilbert eligible based on patient's age to complete this topic Procedures Procedure Name Priority Date/Time Associated Diagnosis Comments BASIC METABOLIC PANEL STAT 05/08/2017 11:29 AM EDT from Last 3 Months or Most Recently Relevant to Health Maintenance Results * (ABNORMAL) Basic metabolic panel (05/08/2017 11:29 AM EDT) Sodium 140 137 - 145 mmol/L 05/08/2017 11:55 AM [facility] Potassium 3.7 3.5 - 5.1 mmol/L 05/08/2017 11:55 AM [facility] Chloride 104 98 - 107 mmol/L 05/08/2017 11:55 AM [facility] CO2 26 22 - 30 mmol/L 05/08/2017 11:55 AM [facility] Anion Gap 10 7 - 16 05/08/2017 11:55 AM [facility] Glucose 104(H) 70 - 100 mg/dL 05/08/2017 11:55 AM [facility] BUN 7 7 - 17 mg/dL 05/08/2017 11:55 AM [facility] Creatinine 0.57 0.52 - 1.04 mg/dL 05/08/2017 11:55 AM [facility] Calcium 9.6 8.4 - 10.2 mg/dL 05/08/2017 11:55 AM [facility] BUN/Creatinine Ratio 12.3 05/08/2017 11:55 AM [facility] eGFR (Afr Amer) >60 >60 mL/min/1.7 3m2 05/08/2017 11:55 AM [facility] Comment: Values under 60mL/min/1.73m2 may indicate CKD if noted for more than 3 months. eGFR is only valid if creatinine is at steady state. eGFR (NON -Tamiko n) >60 >60 mL/min/1.7 3m2 05/08/2017 11:55 AM [facility] Comment: Values under 60mL/min/1.73m2 may indicate CKD if noted for more than 3 months. eGFR is only valid if creatinine is at steady state. Blood specimen (specimen) Venipuncture / Unknown 05/08/2017 11:29 AM EDT 05/08/2017 11:34 AM EDT Eugene RENEE LAB BLOOD ORDERABLES Final R esult [facility] [address] [place] [address], [facility] [phone] from Last 3 Months or Most Recently Relevant to Health Maintenance Insurance [place] Care Teams Ship Fastener Relationship Specialty Start Date End Date Tevin Quinteros MD PCP - General Emergency Medicine 01/11/16
== END 2024-07-30 11:53 | disposition home or self-care (01) ==
LOC: HO.PMC 11:26
PROVIDERS: PCP Internal Medicine; Visit Provider Registered Nurse Emergency
DX: M53.3 Sacrococcygeal disorders, not elsewhere classified (principal); M47.816 Spondylosis without myelopathy or radiculopathy, lumbar region; M54.16 Radiculopathy, lumbar region; R20.2 Paresthesia of skin; M54.50 Low back pain, unspecified
CPT/HCPCS: 99213; G2211

== ENCOUNTER → 2024-07-30 11:25 | Outpatient (BNVA) | payer OTHER, SELFPAY | PROVIDERS: PCP Internal Medicine; Visit Provider Registered Nurse Emergency | DX: M47.816 Spondylosis without myelopathy or radiculopathy, lumbar region (principal); M53.3 Sacrococcygeal disorders, not elsewhere classified; M54.16 Radiculopathy, lumbar region; R20.2 Paresthesia of skin; M54.50 Low back pain, unspecified | CPT/HCPCS: 99212 ==

== ENCOUNTER 2024-08-21 14:10 | Outpatient (REF) | payer OTHER, SELFPAY ==
--- NOTE | 2024-08-21 14:13 | EMG_ITS ---
Chief complaint: Chronic lower back pain, radiating to both legs, with numbness on feet Reason for referral: Evaluate for lumbar radiculopathy Referred by: Divya Peng NP Procedure done: Bilateral lower extremity NCS/EMG Precautions and/or limitations: None The limb temperature was monitored continuously and remained between 32-36 degrees C during the performance of the NCS. Nerve Conduction Studies Anti Sensory Summary Table ?Stim Site NR Onset (ms) Norm Onset (ms) Peak (ms) Norm Peak (ms) O-P Amp (?V) Norm O-P Amp Site1 Site2 Delta-0 (ms) Dist (cm) Shawn (m/s) Norm Shawn (m/s) Left Sural Anti Sensory (Lat Mall) Calf ? 2.7 3.3 <4.0 8.9 >5.0 Calf Lat Mall 2.7 14.0 52 Right Sural Anti Sensory (Lat Mall) Calf ? 3.1 3.7 <4.0 7.6 >5.0 Calf Lat Mall 3.1 14.0 45 Motor Summary Table ?Stim Site NR Onset (ms) Norm Onset (ms) O-P Amp (mV) Norm O-P Amp iAmp (mV) Amp (1st) (%) Site1 Site2 Delta-0 (ms) Dist (cm) Shawn (m/s) Norm Shawn (m/s) Right Peroneal Motor (Ext Dig Brev) Ankle ? 3.8 <4.0 5.0 >2.5 5.5 100.0 Ankle Ext Dig Brev 3.8 0.0 B Fib ? 9.1 5.3 5.8 106.0 B Fib Ankle 5.3 25.0 47 >40 Poplt ? 10.1 5.2 5.6 104.0 Poplt B Fib 1.0 4.5 45 >40 Left Tibial Motor (Abd Thompson Brev) Ankle ? 3.1 <5 6.8 >2.5 9.6 100.0 Ankle Abd Thompson Brev 3.1 0.0 Knee ? 10.4 8.8 11.3 129.4 Knee Ankle 7.3 33.0 45 >40 Right Tibial Motor (Abd Thompson Brev) Ankle ? 3.7 <5 8.9 >2.5 12.4 100.0 Ankle Abd Thompson Brev 3.7 0.0 Knee ? 10.7 8.0 10.4 89.9 Knee Ankle 7.0 33.0 47 >40 EMG ?Side Muscle Nerve Root Ins Act Fibs Psw Amp Dur Poly Recrt Int Pat Comment Right AbdHallucis MedPlantar S1-2 Nml Nml Nml Nml Nml 0 Nml Complete Right AntTibialis Dp Br Peron L4-5 Nml Nml Nml Nml Nml 0 Nml Complete Right PostTibialis Tibial L5, S1 Nml Nml Nml Nml Nml 0 Nml Complete Right MedGastroc Tibial S1-2 Nml Nml Nml Nml Nml 0 Nml Complete Right VastusMed Femoral L2-4 Nml Nml Nml Nml Nml 0 Nml Complete Left AbdHallucis MedPlantar S1-2 Incr 1+ 1+ Nml Nml 0 Nml Complete Left AntTibialis Dp Br Peron L4-5 Nml Nml Nml Nml Nml 0 Nml Complete Left PostTibialis Tibial L5, S1 Nml Nml Nml Nml Nml 0 Nml Complete Left MedGastroc Tibial S1-2 Incr 1+ 1+ Nml Nml 0 Nml Complete Left VastusMed Femoral L2-4 Nml Nml Nml Nml Nml 0 Nml Complete Paraspinal EMG ?Side Muscle Nerve Root Ins Act Fibs Psw Comment Right Lumbar Upper Rami Nml Nml Nml Right Lumbar Mid Rami Nml Nml Nml Right Lumbar Lower Rami Nml Nml Nml Left Lumbar Upper Rami Nml Nml Nml Left Lumbar Mid Rami Nml Nml Nml Left Lumbar Lower Rami Nml Nml Nml FINDINGS: All motor and sensory nerves tested showed normal latencies, amplitudes and conduction velocities. Concentric needle EMG was performed in selected muscles of the bilateral lower extremity and lumbar paraspinals. Study revealed signs of electric abnormalities as shown in the table above. Left mg and AH showed increased insertional activity, PSWs and fibrillations. Lumbar paraspinals did not show denervation. IMPRESSION: 1. This is an abnormal study. 2. There is electrodiagnostic findings suggestive of left S1 radiculopathy. 3. There is no electrodiagnostic evidence for peroneal neuropathy, tibial neuropathy, lumbosacral plexopathy, or peripheral neuropathy. CLINICAL COMMENT: Further clinical correlation recommended. Thank you for your kind referral. Meera Calixto MD, LUIS Board Certified, [place] [employer] and [employer] (ABPMR) Board Certified, [place] Board [employer] Electro[employer] (ABEM) CODIN 00997 x 2 MTDD
== END 2024-08-21 14:11 | disposition home or self-care (01) ==
LOC: HO.NEURO 14:10
PROVIDERS: Visit Provider Registered Nurse Emergency
DX: R20.2 Paresthesia of skin (principal); M54.50 Low back pain, unspecified; G89.29 Other chronic pain; R94.131 Abnormal electromyogram [EMG]
CPT/HCPCS: 95886; 95909

== ENCOUNTER → 2024-08-21 14:13 | Outpatient (BNV) | payer OTHER, SELFPAY | PROVIDERS: Visit Provider Physical Medicine & Rehabilitation | DX: M54.16 Radiculopathy, lumbar region (principal) | CPT/HCPCS: 95886; 95909 ==

== ENCOUNTER 2024-09-03 09:12 | Outpatient (AMB) | payer OTHER, SELFPAY ==
--- NOTE | 2024-09-03 09:19 | MHC.OFFVIS ---
Vital Signs 09/03/24 09:21 Height 4 ft 11 in Weight 146 lb BMI 29.5 BP 134/83 Blood Pressure Location Rt brachial Position Sitting Respiration 16 Pulse 107 H Pulse Source Pulse Oximeter Pulse Oximetry (%) 97 Oxygen Delivery Method Room Air Intake Visit Reasons: Follow up [facility] Required: No Accompanied by: Self / Same As Patient Allergies Sulfa (Sulfonamide Antibiotics) Allergy (Mild, Verified 09/03/24 09:23) Unknown trimethoprim Allergy (Mild, Verified 09/03/24 09:23) Unknown cephalexin Allergy (Verified 09/03/24 09:23) Unknown HPI Comments Details: The patient is a 48-year-old female presenting with chronic pain and neuropathy symptoms. She reports that the pain is most severe in the morning, describing it as a sensation of pins and needles in both feet, which improves after about 20 minutes of movement. The patient denies having diabetes, but experiences neuropathy symptoms. Recent EMG reviewed, results as per below. The patient also reports shooting pain on the left side, which radiates down the leg, particularly when performing activities such as washing dishes. She describes the pain as severe enough to require sitting down to alleviate it, and it is accompanied by a sensation that her back might snap. A previous MRI conducted two years ago revealed a disc bulge at L5-S1 and arthritis, but no nerve compression was noted at that time. The patient has not yet undergone physical therapy due to scheduling delays, she is scheduled to start in October. - Onset: Pain is most severe in the morning. - Quality: Described as pins and needles sensation in both feet. - Location: Bilateral feet, radiating down the left leg. - Exacerbating factors: Activities such as washing dishes. - Relieving factors: Movement improves symptoms after about 20 minutes. - Affect: Pain impacts daily activities, requiring the patient to sit down during severe episodes. - Analgesia: Previous use of gabapentin and ibuprofen with limited relief - Adverse Effects: None reported. - Activities of Daily Living: Pain interferes with activities such as washing dishes. - Aberrant Drug Related Behaviors: None reported. [facility] Medical History GERD (gastroesophageal reflux disease) Arthritis Surgical History H/O: History of gallbladder removal History of partial hysterectomy H/O laparoscopy Surgical history of tubal ligation H/O wrist surgery Family History Mother Diabetes Vertigo HTN (hypertension) Father Liver cancer Lung cancer History of throat cancer Social History Alcohol intake: never Patient Tobacco Use Status: Current everyday Tobacco user Cigarette Packs Per Day: 10 Review of Systems Const Details: - Neurological: Reports pins and needles sensation in both feet, shooting pain down the left leg. Denies diabetes. - Musculoskeletal: Reports pain in the back and legs, swelling in the leg, and tingling sensations. Physical Exam Exam Exam: General: awake, alert, oriented. Answers questions appropriately. Fully engaged in examination. Skin: warm, dry, intact HEENT: Normocephalic. Hearing intact. Cardiac: External chest normal in appearance. Respiratory: No cough, audible wheezing or stridor. Abdomen: without gross distension. MS: No obvious swelling or deformities. Able to transition from sit to stand unassisted. Ambulates with bilaterally normal heel strike and toe off SLR negative bilaterally Facet loading positive Tenderness over midline lumbar vertebrae and lumbar paraspinal muscles Nontender or bilateral PSIS Neurological: Oriented to person, place, time and situation. Thought process intact. No gait abnormalities appreciated. Psychiatric: Appropriate mood and affect. Good judgment and insight. Vital Signs: Last Vital Signs Pulse 107 H 09/03/24 09:21 Resp 16 09/03/24 09:21 BP 134/83 09/03/24 09:21 Pulse Ox 97 09/03/24 09:21 Oxygen Delivery Method Room Air 09/03/24 09:21 BMI result Body Mass Index 29.5 Const Other: Results Reviewed Results Reviewed: 08/21/24 EMG FINDINGS: All motor and sensory nerves tested showed normal latencies, amplitudes and conduction velocities. Concentric needle EMG was performed in selected muscles of the bilateral lower extremity and lumbar paraspinals. Study revealed signs of electric abnormalities as shown in the table above. Left mg and AH showed increased insertional activity, PSWs and fibrillations. Lumbar paraspinals did not show denervation. IMPRESSION: 1. This is an abnormal study. 2. There is electrodiagnostic findings suggestive of left S1 radiculopathy. 3. There is no electrodiagnostic evidence for peroneal neuropathy, tibial neuropathy, lumbosacral plexopathy, or peripheral neuropathy. 09/22/2022 MR LUMBAR SPINE WITHOUT CONTRAST FINDINGS: Alignment is normal in the sagittal dimension. Vertebral heights are preserved. No acute bone marrow signal changes. There is disc desiccation at multiple levels without substantial loss of intervertebral disc height. The tip of the conus medullaris is located at the level of L2. 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 Visualized distal cord signal intensity is normal. At T12-L1 the annular contour is normal. No canal or neuroforaminal compromise. At L1-L2 the annular contour is normal. No canal stenosis. No mass effect on the traversing or foraminal nerve roots. At L2-L3 the annular contour is normal. No canal stenosis. No mass effect on the traversing or foraminal nerve roots. At L3-L4 the annular contour is normal. No canal stenosis. No mass effect on the traversing or foraminal nerve roots. At L4-L5 the annular contour is normal. Bilateral facet degenerative change. No canal stenosis. No mass effect on the traversing or foraminal nerve roots. At L5-S1 there is a right subarticular annular fissure associated with a slightly bulging disc. Bilateral facet degenerative change. No canal stenosis. No mass effect on the traversing or foraminal nerve roots. Limited visualization of the retroperitoneal anatomy reveals no abnormal finding. Psoas and paraspinal muscle groups are grossly symmetric. IMPRESSION: There is a right subarticular annular fissure associated with a bulging disc at L5-S1. There is degenerative arthrosis of the articular facet joints at L4-L5 and L5-S1. Otherwise unremarkable examination. No canal stenosis. No mass effect on the traversing or foraminal nerve roots. Assessment & Plan Assessment & Plan (1) Lumbar spondylosis: Code(s): M47.816 - Spondylosis without myelopathy or radiculopathy, lumbar region Category: Medical (2) Facet arthritis of lumbar region: Code(s): M47.816 - Spondylosis without myelopathy or radiculopathy, lumbar region Category: Medical (3) Lumbar radiculopathy: Code(s): M54.16 - Radiculopathy, lumbar region Category: Medical (4) Paresthesia of bilateral legs: Code(s): R20.2 - Paresthesia of skin Category: Medical (5) Low back pain: Code(s): M54.50 - Low back pain, unspecified Category: Medical (6) Lumbar disc herniation: Code(s): M51.26 - Other intervertebral disc displacement, lumbar region Category: Medical Plan The plan includes attempting to repeat the MRI to assess any changes in the patient's condition, particularly focusing on the disc bulge at L5-S1 and potential nerve compression at S1. Additionally, the MRI will be scheduled at a facility in [place] that offers an open MRI to accommodate the patient's previous discomfort with enclosed spaces. The patient is on a cancellation list for physical therapy, and efforts will be made to expedite this process. Patient was informed and verbally consented to the use of an ambient scribe for clinic note documentation during this visit. Orders: Orders MR lumbar spine wo con Today M47.816 - Spondylosis without myelopathy or radiculopathy, lumbar region, M51.26 - Other intervertebral disc displacement, lumbar region, M54.16 - Radiculopathy, lumbar region, M54.50 - Low back pain, unspecified, R20.2 - Paresthesia of skin Patient Instructions: - Follow up with physical therapy scheduling and attend sessions as soon as possible. - Await notification for MRI scheduling at the [facility]. - Report any worsening of symptoms or new symptoms to the clinic immediately. Coding Level of Care Code Est Pt Level 3 (67927) Complex EM visit Add On G2211 Diagnoses Lumbar spondylosis M47.816 Facet arthritis of lumbar region M47.816 Lumbar radiculopathy M54.16 Paresthesia of bilateral legs R20.2 Low back pain M54.50 Lumbar disc herniation M51.26
[2024-09-03 09:21] VITALS: BP 134/83; PULSE 107; RESP 16; O2SAT 97; BMI 29.5
--- OUTSIDE RECORDS SUMMARY | 2024-09-03 09:41 | XMS_ITS | Clinical Summary ---
Author Organization [facility] [address] [place] [address] [place] [address] Phone Care Team Providers Care Inspector Canned Food Reconditioning Name Role Phone Patrick Pena MD Primary Care Provider [phone] Allergies Active Allergy Reactions Criticality Noted Date Comments Cephalexin Hives 10/08/2019 Fruit Extracts 11/10/2019 Pollen food syndrome Sulfa (Sulfonamide Antibiotics) Itching 11/14/2019 Trimethoprim Itching 11/14/2019 Medications acetaminophen (TYLENOL) 500 mg tablet Take 1 tablet (500 mg total) by mouth every 6 (six) hours if needed. Active cetirizine (ZyrTEC) 10 mg tablet Take 1 tablet (10 mg total) by mouth 1 (one) time each day. 4 Active EPINEPHrine (EpiPen 2-Garrett) 0.3 mg/0.3 mL injection Inject 1 Device as directed as needed (anaphylaxis) . Use as directed 4 Active furosemide (LASIX) 20 mg tablet Take 1 tablet (20 mg total) by mouth 1 (one) time each day if needed (lower extremity swelling). 90 tablet 5 Active albuterol HFA (PROAIR HFA ; PROVENTIL HFA ; VENTOLIN HFA) 90 mcg/actuation inhalerIndicatio ns:Mild intermittent asthma without complication Inhale 2 puffs by mouth every 4 (four) hours if needed for wheezing. Inhale 2 Puffs into the lungs every 4 hours as needed for Cough or Shortness of Breath. 6.7 g 2 5 Active nicotine (NICODERM CQ) 14 mg/[address] 1 patch on the skin 1 (one) time each day at the same time. 30 each 5 09/13/19 25 Active albuterol HFA (PROAIR HFA ; PROVENTIL HFA ; VENTOLIN HFA) 90 mcg/actuation inhaler Inhale 2 Puffs into the lungs every 4 hours as needed for Cough or Shortness of Breath. 4 08/14/19 25 Discontin ued(Reord er) Active Problems Problem Noted Date Diagnosed Date Chronic right-sided low back pain with right-corry ed sciatica 03/08/2023 Peripheral neuropathy 03/08/2023 Venous insufficiency of both lower extremities 0 03/08/2023 Esophageal dysmotilities 05/19/2020 Esophageal dysphagia 05/19/2020 Dermatographism 01/14/2020 ADHD (attention deficit hyperactivity disorder) 11/14/2019 Depression 11/14/2019 Hypertriglyceridemia 11/14/2019 Lordosis 11/14/2019 Prediabetes 11/14/2019 Allergic conjunctivitis, bilateral 11/10/2019 Anxiety 11/10/2019 Cyst of right kidney 11/10/2019 Perennial allergic rhinitis 11/10/2019 Pollen-food allergy 11/10/2019 Psoriasis 11/10/2019 Sciatic nerve pain 11/10/2019 Eosinophilic esophagitis 11/03/2019 Encounters Date Type Department Care Team Description 08/13/2024 10:30 AM EDT Office Visit [facility] [address] [phone] Khushbu Peraza PA Other polyneuropathy (Primary Dx); Cigarette smoker; Mild intermittent asthma without complication; Venous insufficiency of both lower extremities; Prediabetes; Left wrist pain 07/14/2024 1:27 PM EDT - 07/14/2024 11:59 PM EDT Hospital Encounter [address] [phone] Left wrist pain Discharge Disposition: Home or Self Care 07/14/2024 1:00 PM EDT Office Visit Adult [address] [phone] Khushbu Peraza PA Venous insufficiency of both lower extremities (Primary Dx); Left wrist pain; Chronic right-sided low back pain with right-sided sciatica; Prediabetes; Hypertriglyceridemia; Encounter for screening mammogram for malignant neoplasm of breast 07/11/2024 Telephone Adult Medicine [address] [phone] Patrick Pena MD Foot Swelling from Last 3 Months Surgical History Surgery Date Site/Laterality Comments SECTION 1989 PROCEDURE: HISTORICAL ; COMMENT: 1992, 1999 PARTIAL HYSTERECTOMY 2005 PROCEDURE: IA SUPRACERVICAL ABDL HYSTER W/WO RMVL TUBE OVARY CHOLECYSTECTOMY 2000 PROCEDURE: LAPAROSCOPY, CHOLECYSTECTOMY TUBAL LIGATION PROCEDURE: HISTORICAL TUBAL LIGATION Medical History Medical History Date Comments Sciatic nerve pain DX:Sciatic ne rve pain Eosinophilic esophagitis 11/03/2019 DX:Eosi nophilic esophagitis ADHD (attention deficit hype ractivity disorder) 11/14/2019 DX:ADHD (attention deficit hyperactivity disorder) Depression 11/14/2019 DX:Depression Pollen-food allergy 11/10/2019 DX:Pollen-fo od allergy Perennial allergic rhinitis 11/10/2019 DX:P erennial allergic rhinitis Cyst of right kidney 11/10/2019 DX:Cyst of right kidney Anxiety 11/10/2019 DX:Anxiety Allergic conjunctivitis, bilateral 11/10/2019 DX:Allergic conjunctivitis, bilateral Lordosis 11/14/2019 DX:Lordosis Prediabetes 11/14/2019 DX:Prediabetes Hypertriglyceridemia 11/14/2019 DX:Hypertri glyceridemia Esophageal reflux DX:Esophageal reflux Gastro-esophageal reflux dis ease without esophagitis DX:Gastro-esophageal reflux disease without esophagitis Food impaction of esophagus, subsequent encounter DX:Food impaction of esophag us, subsequent encounter Family History Medical History Relation Name Comments Liver cancer Father Lung cancer Father Throat cancer Father Colon cancer Maternal Grandmother Asthma Mother Diabetes Mother Hypertension Mother Other: cancer- unknown Paternal Grandmother Other: allergic rhinitis Sister Other: food allergies Sister Asthma Son Eczema Son Relation Name Status Comments Father Maternal Grandfather Maternal Grandmother Mother Alive Paternal Grandfather Paternal Grandmother Sister Son Social History Tobacco Use Types Packs/Day Years Used Date Smoking Tobacco: Every Day Cigarettes Smokeless Tobacco: Never Alcohol Use Standard Drinks/Week Comments Yes 0 (1 standard drink = 0.6 oz pur e alcohol) Comments Unknown Sex and Gender Information Value Date Recorded Sex Assigned at Not on file Legal Sex Female 10:17 PM EST Gender Identity Not on file Sexual Orientation Not on file Obstetrics History Last Filed Vital Signs Vital Sign Reading Time Taken Comments Blood Pressure 124/79 08/13/2024 10:13 AM EDT Pulse 102 08/13/2024 10:13 AM EDT Temperature 36.4 C (97.6 F) 08/13/2024 10:13 AM EDT Respiratory Rate 16 08/13/2024 10:13 AM EDT Oxygen Saturation 95% 08/13/2024 10:13 AM EDT Inhaled Oxygen Concentration - - Weight 67 kg (147 lb 12.8 oz) 08/13/2024 10:13 A M EDT Height 149.9 cm (4' 11 ) 08/13/2024 10:13 AM EDT Body Mass Index 29.85 08/13/2024 10:13 AM EDT Plan of Treatment Upcoming Encounters Date Type Department Care Team (Late st Contact Info) Description 09/11/2024 1:00 PM EDT Consult Orthopedic Surgery - [place] [address] [facility] [address] [place] [address] Monica Lundberg PA [address] [facility] [address] [place] [address] 12/15/2024 11:00 AM EST Consult Vascular Surgery - [place] [address] [facility] [address] [facility] [address] [place] [address] Elaine Edgar PA [address] [facility] [address] [place] [address] 12/17/2024 8:30 AM EST Office Visit Adult Medicine [address] [phone] Khushbu Peraza PA [address] [place] [id number] Health Maintenance Due Date Last Done Comments Breast Cancer Screening 1973 DTaP,Tdap,and Td Vaccines (1 - Tdap) 1992 Hepatitis B Vaccines (1 of 3 - 19+ 3-dose series) 1992 Pneumococcal Vaccine: 50+ Years (1 of 2 - PCV) 1992 Cervical Cancer Screening: P ap Smear 1994 HIV Screening 01/07/2022 Hepatitis C Screening 01/07/2022 Social Influencers of Health Screening 01/07/2022 COVID-19 Vaccine (4 - 2023-2 5 season) 2023 01/07/2021, 07/02/2020, 06/04/2020 Zoster Vaccines (1 of 2) 12/15/2023 Depression Screening 02/06/2024 Influenza Vaccine (#1) 2024 02/21/2017 Cholesterol Screening (Lipid Panel) 10/09/2024 10/10/2019 Colorectal Cancer Screening: Colonoscopy 06/07/2028 06/08/2023 HIB Vaccines Aged Out No longer eligi ble based on patient's age to complete this topic HPV Vaccines Aged Out No longer eligi ble based on patient's age to complete this topic Hepatitis A Vaccines Aged Out No long er eligible based on patient's age to complete this topic IPV Vaccines Aged Out No longer eligi ble based on patient's age to complete this topic MMR Vaccines Aged Out No longer eligi ble based on patient's age to complete this topic Meningococcal ACWY Vaccine Aged Out N o longer eligible based on patient's age to complete this topic Meningococcal B Vaccine Aged Out No l onger eligible based on patient's age to complete this topic RSV Immunization Patients Under 20 months Aged Out No longer eligible b ased on patient's age to complete this topic Varicella Vaccines Aged Out No longer eligible based on patient's age to complete this topic Procedures Procedure Name Priority Date/Time Associated Diagnosis Comments XR WRIST 3+ VIEWS LEFT Routine 07/14/2024 1:44 PM EDT Left wrist pain HM COLONOSCOPY Routine 06/08/2023 LIPID PANEL Routine 10/10/2019 from Last 3 Months or Most Recently Relevant to Health Maintenance Results * XR Wrist 3+ Views Left (07/14/2024 1:44 PM EDT) Anatomical Region Laterality Modality Upper Extremities, Wrist Left Radiogr aphic Imaging 07/14/2024 10:1 1 PM EDT Impressions 07/14/2024 10:15 PM EDT No fracture detected. POS - [id number] -------- FINAL REPORT -------- Dictated By: Marley Bee Dictated Date: 07/14/2024 22:11 ET Assigned Physician: Marley Bee Reviewed and Electronically Signed By: Marley Bee Signed Date: 07/14/2024 22:15 ET Workstation ID: [id number] Transcribed By: Self Edit Transcribed Date: 07/14/2024 22:11 ET Narrative 07/14/2024 10:15 PM EDT EXAM: Left wrist x-ray HISTORY: Left wrist pain radial side after twisting motion 6 months ago. COMPARISON: None FINDINGS: 5 views were performed. No fracture or malalignment detected. Joint spaces are maintained. No destructive bone lesion. No soft tissue calcifications. Procedure Note Marley Bee MD - 07/14/2024 EXAM: Left wrist x-ray HISTORY: Left wrist pain radial side after twisting motion 6 months ago. COMPARISON: None FINDINGS: 5 views were performed. No fracture or malalignment detected. Joint spaces are maintained. Nodestructive bone lesion. No soft tissue calcifications. IMPRESSION: No fracture detected. POS - [id number] -------- FINAL REPORT -------- Dictated By: Marley Bee Dictated Date: 07/14/2024 22:11 ET Assigned Physician: Marley Bee Reviewed and Electronically Signed By: Marley Bee Signed Date: 07/14/2024 22:15 ET Workstation ID: [id number] Transcribed By: Self Edit Transcribed Date: 07/14/2024 22:11 ET Khushbu RENEE IMG XR PROCEDURES Final Result * Colonoscopy (06/08/2023) Colonoscopy no interpretation , abstracted Anatomical Region Laterality Modality Other Historical Provider HEALTH MAINTENANCE Final Result * (ABNORMAL) Lipid panel (10/10/2019) LDL/HDL Ratio 6(A) 0 - 4 Triglycerides 342(A) 0 - 150 mg/dL Cholesterol 186 0 - 200 mg/dL HDL 33(A) >=40 mg/dL LDL Cholesterol 85 0 - 100 mg/dL Blood Venous blood specimen / Unknown Historical Provider LAB BLOOD ORDERABLES Brooke l Result from Last 3 Months or Most Recently Relevant to Health Maintenance Insurance [facility] Care Teams Inspector Canned Food Reconditioning Relationship Specialty Start Date End Date Patrick Pena MD [address] [place] [address] PCP - General Internal Medicine 09/21/21
--- OUTSIDE RECORDS SUMMARY | 2024-09-03 09:41 | XMS_ITS | Clinical Summary ---
Author Organization [facility] Address [address] [place] [address] Care Team Providers Care Flatwork Tier Name Role Phone Unavailable Primary Care Provider Unavailabl e Social History Tobacco Use Types Packs/Day Years Used Date Smoking Tobacco: Never Assessed Comments Unknown Sex and Gender Information Value Date Recorded Sex Assigned at Not on file Legal Sex Female 12:39 PM EDT Gender Identity Not on file Sexual Orientation Not on file Plan of Treatment Health Maintenance Due Date Last Done Comments Hepatitis C Virus Screening 1973 HIV Screening 1986 DTaP/Tdap/Td Vaccines (1 - Tdap) 1992 Hepatitis B Vaccines (1 of 3 - 19+ 3-dose series) 10/1992 COVID-19 Vaccine ( - 2023- season) 2023 Pneumococcal Vaccines 50+ (1 of 1 - PCV) 12/15/2023 Zoster (Shingles) Vaccine (1 of 2) 12/15/2023
--- OUTSIDE RECORDS SUMMARY | 2024-09-03 09:41 | XMS_ITS | Clinical Summary ---
Author Organization [employer] [facility] Address [address] [place] [address] Care Team Providers Care Life Guard Name Role Phone Thomas Palmer MD Primary Care Provider [phone] Social History Tobacco Use Types Packs/Day Years Used Date Smoking Tobacco: Never Assessed Sex and Gender Information Value Date Recorded Sex Assigned at Not on file Gender Identity Not on file Sexual Orientation Not on file Job Start Date Occupation Industry Not on file Not on file Not on file Plan of Treatment Health Maintenance Due Date Last Done Comments Hepatitis B Vaccines (1 of 3 - 3-dose series) 1973 Hepatitis C Screening 1973 COVID-19 Vaccine (#1) 06/13/1974 Depression Screening 1985 Preventative Health Evaluation 12/15/1991 DTap / Tdap / Td (1 - Tdap) 1992 Cervical Cancer Screening (P ap Smear) 1994 Colon Cancer Screening (Colonoscopy) 2018 Breast Cancer Screening (Mammogram) 12/15/2023 Shingrix-Zoster Vaccine (1 of 2) 12/15/2023 Influenza Vaccine (#1) 2024 Pneumococcal Vaccine Aged Out No long er eligible based on patient's age to complete this topic RSV Ped < 20 months Aged Out No longe r eligible based on patient's age to complete this topic Care Teams Life Guard Relationship Specialty Start Date End Date Thomas Palmer MD [address] [place] [address] [place] [address] PCP - General Internal Medicine 03/26/20
--- OUTSIDE RECORDS SUMMARY | 2024-09-03 09:41 | XMS_ITS | Clinical Summary ---
Author Organization [address] Address [address] [place] [phone] Phone Care Team Providers Care Precision Honer Name Role Phone Tevin Quinteros MD Primary Care Provider [phone] Allergies Active Allergy Reactions Criticality Noted Date [...] 137 - 145 mmol/L 05/08/2017 11:55 AM [facility] Potassium 3.7 3.5 - 5.1 mmol/L 05/08/2017 11:55 AM [facility] Chloride 104 98 - 107 mmol/L 05/08/2017 11:55 AM [facility] CO2 26 22 - 30 mmol/L 05/08/2017 11:55 AM [facility] Anion Gap 10 7 - 16 05/08/2017 11:55 AM [facility] Glucose 104(H) 70 - 100 mg/dL 05/08/2017 11:55 AM [facility] BUN 7 7 - 17 mg/dL 05/08/2017 11:55 AM [facility] Creatinine 0.57 0.52 - 1.04 mg/dL 05/08/2017 11:55 AM [facility] Calcium 9.6 8.4 - 10.2 mg/dL 05/08/2017 11:55 AM [facility] BUN/Creatinine Ratio 12.3 05/08/2017 11:55 AM [facility] eGFR (Afr Amer) >60 >60 mL/min/1.7 3m2 05/08/2017 11:55 AM [facility] Comment: Values under 60mL/min/1.73m2 may indicate CKD if noted for more than 3 months. eGFR is only valid if creatinine is at steady state. eGFR (NON -Tamiko n) >60 >60 mL/min/1.7 3m2 05/08/2017 11:55 AM [facility] Comment: Values under 60mL/min/1.73m2 may indicate CKD if noted for more than 3 months. eGFR is only valid if creatinine is at steady state. Blood specimen (specimen) Venipuncture / Unknown 05/08/2017 11:29 AM EDT 05/08/2017 11:34 AM EDT Eugene RENEE LAB BLOOD ORDERABLES Final R esult [facility] [address] [place] [address], [facility] [phone] from Last 3 Months or Most Recently Relevant to Health Maintenance Insurance [place] Care Teams Precision Honer Relationship Specialty Start Date End Date Tevin Quinteros MD PCP - General Emergency Medicine 01/11/16
== END 2024-09-03 09:35 | disposition home or self-care (01) ==
LOC: HO.PMC 09:12
PROVIDERS: Visit Provider Registered Nurse Emergency
DX: M47.816 Spondylosis without myelopathy or radiculopathy, lumbar region (principal); M54.16 Radiculopathy, lumbar region; R20.2 Paresthesia of skin; M54.50 Low back pain, unspecified; M51.26 Other intervertebral disc displacement, lumbar region
CPT/HCPCS: 99213; G2211

== ENCOUNTER → 2024-09-03 09:12 | Outpatient (BNVA) | payer OTHER, SELFPAY | PROVIDERS: Visit Provider Registered Nurse Emergency | DX: M47.816 Spondylosis without myelopathy or radiculopathy, lumbar region (principal); M54.16 Radiculopathy, lumbar region; R20.2 Paresthesia of skin; M51.26 Other intervertebral disc displacement, lumbar region | CPT/HCPCS: 99212 ==

== ENCOUNTER 2024-12-26 13:33 | Outpatient (REF) | payer OTHER, SELFPAY ==
--- NOTE | 2024-12-26 | EMG_ITS ---
Chief complaint: Numbness left thumb and 4th digit Reason for referral: Evaluate for Carpal Tunnel Syndrome versus ulnar neuropathy Referred by: Monica RENEE Procedure done: Left upper extremity NCS/EMG Precautions and/or limitations: None The limb temperature was monitored continuously and remained between 32-36 degrees C during the performance of the NCS. Nerve Conduction Studies Anti Sensory Summary Table ?Stim Site NR Onset (ms) Norm Onset (ms) Peak (ms) Norm Peak (ms) O-P Amp (?V) Norm O-P Amp Site1 Site2 Delta-0 (ms) Dist (cm) Shawn (m/s) Norm Shawn (m/s) Left Median Anti Sensory (2nd Digit) Wrist ? 3.4 4.1 <3.6 20.4 >10 Wrist 2nd Digit 3.4 14.0 41 Left Radial Anti Sensory (Thumb) Forearm ? 1.7 2.1 <3.1 42.5 Forearm Thumb 1.7 0.0 Left Ulnar Anti Sensory (5th Digit) Wrist ? 2.5 3.1 <3.7 29.8 >15.0 Wrist 5th Digit 2.5 14.0 56 Motor Summary Table ?Stim Site NR Onset (ms) Norm Onset (ms) O-P Amp (mV) Norm O-P Amp iAmp (mV) Amp (1st) (%) Site1 Site2 Delta-0 (ms) Dist (cm) Shawn (m/s) Norm Shawn (m/s) Left Median Motor (Abd Poll Brev) Wrist ? 4.5 <3.9 9.2 >4.5 10.4 100.0 Elbow Wrist 3.7 16.0 43 >45 Elbow ? 8.2 9.6 10.7 104.3 Left Ulnar Motor (Abd Dig Minimi) Wrist ? 3.0 <3.0 8.1 >5 11.3 100.0 B Elbow Wrist 2.5 14.0 56 >45 B Elbow ? 5.5 7.5 10.5 92.6 A Elbow B Elbow 1.7 10.0 59 >45 A Elbow ? 7.2 6.7 9.5 82.7 EMG ?Side Muscle Nerve Root Ins Act Fibs Psw Amp Dur Poly Recrt Int Pat Comment Left 1stDorInt Ulnar C8-T1 Nml Nml Nml Nml Nml 0 Nml Complete Left FlexCarRad Median C6-7 Nml Nml Nml Nml Nml 0 Nml Complete Left Biceps Musculocut C5-6 Nml Nml Nml Nml Nml 0 Nml Complete Left Triceps Radial C6-7-8 Nml Nml Nml Nml Nml 0 Nml Complete Left Deltoid Axillary C5-6 Nml Nml Nml Nml Nml 0 Nml Complete FINDINGS: Left median motor nerve showed prolonged distal latency, normal amplitude and slow conduction velocity. Left median sensory nerve showed prolonged peak latency. All other nerves tested were within normal. Concentric needle EMG was performed in selected muscles of the left upper extremity. Study did not reveal signs of electric abnormalities as shown in the table above. IMPRESSION: 1. This is an abnormal study. 2. There is electrodiagnostic evidence for left moderate-severe median neuropathy at the wrist, consistent with carpal tunnel syndrome. 3. There is no electrodiagnostic evidence for ulnar neuropathy, brachial plexopathy, or cervical radiculopathy. Thank you for your kind referral. Meera Calixto MD, LUIS Board Certified, [place] Board of [employer] Medicine and Rehabilitation (ABPMR) Board Certified, [place] Board of Electrodiagnostic Medicine (ABEM) CODIN [address] x1 extremity MTDD
--- OUTSIDE RECORDS SUMMARY | 2024-12-26 13:52 | XMS_ITS | Encounter Summary ---
Author Organization [facility] Address [address] [place] [phone] Care Team Providers Care Tie Cutter Name Role Phone Tevin Quinteros MD Primary Care Provider [phone] Reason for Referral * Consultation (Routine) - Closed Specialty Diagnoses / Procedures Referred By Contac t Referred To Contact Neurology Diagnoses Syncope and collapse Nadiya Healy PA Phone: tel: fax: [facility] [address] [place] [address] Phone: tel: fax: Referral ID Status Reason Start Date Expiration Date V isits Requested Visits Authorized [id number] Closed Specialty Services Required 07/15/2015 07/14/2016 1 1 Scheduling Instructions Next Available appointment. Encounter Details Date Type Department Care Team (Late st Contact Info) Description 07/15/2015 Transcribed Orders [facility] [address] [place] [id number] Nadiya Healy PA [address] [place] [address] Syncope and collapse (Primary Dx) Social History Tobacco Use Types Packs/Day Years Used Date Smoking Tobacco: Every Day Alcohol Use Standard Drinks/Week Comments Not Asked 0 (1 standard drink = 0.6 oz pur e alcohol) Comments Unknown Sex and Gender Information Value Date Recorded Sex Assigned at Not on file Legal Sex Female 7:23 AM EST Gender Identity Not on file Sexual Orientation Not on file documented as of this encounter Plan of Treatment Scheduled Referrals Name Type Priority Associated Diagnoses Order Schedule Ambulatory referral to Neurology/[facility] Neurology Outpatient Referral Routine Syncope and collapse Ordered: 07/15/2015 documented as of this encounter Visit Diagnoses Diagnosis Syncope and collapse- Primary documented in this encounter Care Teams Tie Cutter Relationship Specialty Start Date End Date Tevin Quinteros MD PCP - General Emergency Medicine 01/11/16 documented as of this encounter
--- OUTSIDE RECORDS SUMMARY | 2024-12-26 13:52 | XMS_ITS | Encounter Summary ---
Author Organization [facility] Address [address] [place] [phone] Care Team Providers Care Card Hand Name Role Phone Tevin Quinteros MD Primary Care Provider [phone] Reason for Referral * Physical Medicine (Routine) - Closed Specialty Diagnoses / Procedures Referred By Contact Referred To Contact Physical Therapy / Rehabilitation Diagnoses Chronic low back pain Nadiya Healy PA Phone: tel: fax:[phone] [address] Phone: tel: fax: Referral ID Status Reason Start Date Expiration Date V isits Requested Visits Authorized [id number] Closed Specialty Services Required 11/22/2015 10/12/2016 1 1 Encounter Details Date Type Department Care Team (Latest Contact Info) Description 10/07/2015 Transcribed Orders [address] [address] Nadiya Healy PA [address] [place] [phone] Chronic low back pain (Primary Dx) Social History Tobacco Use Types [...] Associated Diagnoses Order Schedule Ambulatory referral to Rehab Services Outpatient Referral Routine Chronic low back pain Ordered: 10/13/2015 documented as of this encounter Visit Diagnoses Diagnosis Chronic low back pain- Primary Lumbago documented in this encounter Care Teams Card Hand Relationship Specialty Start Date End Date Tevin Quinteros MD PCP - General Emergency Medicine 01/11/16 documented as of this encounter
--- OUTSIDE RECORDS SUMMARY | 2024-12-26 13:52 | XMS_ITS | Clinical Summary ---
Author Organization [address] Address [address] [place] [address] Phone Care Team Providers Care Perch Machine Inspector Name Role Phone Tevin Quinteros MD Primary Care Provider [phone] Allergies Active Allergy Reactions Criticality Noted Date [...] 2018 Diabetes screening 05/08/2020 05/08/2017, 10/30/2012, 04/07/2011 Pneumococcal Vaccine (50+ years) (1 of 1 - PCV) 12/15/2023 Shingles vaccine (Shingrix) (1 of 2 - Shingrix (RZV) 2 Dose Standard Series) 12/15/2023 Influenza vaccine 09/05/2024 02/21/2017 Covid-19 vaccine series (1 - season) 2024 RSV Immunization (1 - 1-dose 75+ series) 2048 Meningococcal B Vaccine Aged Out No l onger eligible based on patient's age to complete this topic Meningococcal Vaccine Aged Out No kary gilbert eligible based on patient's age to complete this topic Procedures Procedure Name Priority Date/Time Associated Diagnosis Comments BASIC METABOLIC PANEL STAT 05/08/2017 11:29 AM EDT from Last 3 Months or Most Recently Relevant to Health Maintenance Results * (ABNORMAL) Basic metabolic panel (05/08/2017 11:29 AM EDT) Sodium 140 137 - 145 mmol/L 05/08/2017 11:[address] [facility] Potassium 3.7 3.5 - 5.1 mmol/L 05/08/2017 11:[address] [facility] Chloride 104 98 - 107 mmol/L 05/08/2017 11:[address] [facility] CO2 26 22 - 30 mmol/L 05/08/2017 11:[address] [facility] Anion Gap 10 7 - 16 05/08/2017 11:[address] [facility] Glucose 104(H) 70 - 100 mg/dL 05/08/2017 11:[address] [facility] BUN 7 7 - 17 mg/dL 05/08/2017 11:[address] [facility] Creatinine 0.57 0.52 - 1.04 mg/dL 05/08/2017 11:[address] [facility] Calcium 9.6 8.4 - 10.2 mg/dL 05/08/2017 11:[address] [facility] BUN/Creatinine Ratio 12.3 05/08/2017 11:[address] [facility] eGFR (Afr Amer) >60 >60 mL/min/1.7 3m2 05/08/2017 11:[address] [facility] Comment: Values under 60mL/min/1.73m2 may indicate CKD if noted for more than 3 months. eGFR is only valid if creatinine is at steady state. eGFR (NON -Tamiko n) >60 >60 mL/min/1.7 3m2 05/08/2017 11:[address] [facility] Comment: Values under 60mL/min/1.73m2 may indicate CKD if noted for more than 3 months. eGFR is only valid if creatinine is at steady state. Blood specimen (specimen) Venipuncture / Unknown 05/08/2017 11:29 AM EDT 05/08/2017 11:34 AM EDT Eugene RENEE LAB BLOOD ORDERABLES Final R esult [facility] [address] [phone] from Last 3 Months or Most Recently Relevant to Health Maintenance Insurance [place] Care Teams Perch Machine Inspector Relationship Specialty Start Date End Date Tevin Quinteros MD PCP - General Emergency Medicine 01/11/16
--- OUTSIDE RECORDS SUMMARY | 2024-12-26 13:52 | XMS_ITS | Clinical Summary ---
Author Organization [facility] Address [address] [place] [address] Care Team Providers Care Supervisor Production Name Role Phone Thomas Palmer MD Primary Care Provider [phone] Social History Tobacco Use Types Packs/Day Years [...] age to complete this topic Care Teams Supervisor Production Relationship Specialty Start Date End Date Thomas Palmer MD [address] [place] [address] [place] [address] PCP - General Internal Medicine 03/26/20
--- OUTSIDE RECORDS SUMMARY | 2024-12-26 13:52 | XMS_ITS | Encounter Summary ---
Author Organization [facility] Address [address] [place] [address] Care Team Providers Care Supervisor Boilermaking Shop Name Role Phone Tevin Quinteros MD Primary Care Provider [phone] Reason for Referral * Non-Referral (Routine) - Closed Specialty Diagnoses / Procedures Referred By Contac t Referred To Contact Diagnoses Pain Procedures EMG Nohemi Read MD [address] [place] [address] Phone: tel: fax: Referral ID Status Reason Start Date Expiration Date Visits Re quested Visits Authorized [id number] Closed 08/17/2015 08/16/2016 1 1 Encounter Details Date Type Department Care Team (Late st Contact Info) Description 08/17/2015 Transcribed Orders EEG/NEUROPHYSIOLOGY [address] [id number] Nohemi Read MD [address] [place] [address] Pain (Primary Dx) Social History Tobacco Use Types [...] of this encounter Plan of Treatment Scheduled Orders Name Type Priority Associated Diagnoses Orde r Schedule EMG Neurology Routine Pain Expected: 08/17/2015, Expires: 08/16/2016 documented as of this encounter Visit Diagnoses Diagnosis Pain- Primary Generalized pain documented in this encounter Care Teams Supervisor [employer]il[employer]aking Shop Relationship Specialty Start Date End Date Tevin Quinteros MD PCP - General Emergency Medicine 01/11/16 documented as of this encounter
--- OUTSIDE RECORDS SUMMARY | 2024-12-26 13:52 | XMS_ITS | Encounter Summary ---
Author Organization [facility] Address [address] [place] [phone] Care Team Providers Care Fellmongering Machine Operator Name Role Phone Tevin Quinteros MD Primary Care Provider [phone] Reason for Referral * Physical Medicine (Routine) - Closed Specialty Diagnoses / Procedures Referred By Contact Referred To Contact Physical Therapy / Rehabilitation Diagnoses Lordosis Procedures pt Tevin Quinteros MD Phone: tel:[phone] fax:[phone] [address] Phone: tel: fax: Referral ID Status Reason Start Date Expiration Date Visits Re quested Visits Authorized [id number] Closed 01/11/2016 01/10/2017 1 1 Scheduling Instructions LORDOSIS Encounter Details Date Type Department Care Team (Latest Contact Info) Description 01/11/2016 Transcribed Orders [address] [address] Tevin Quinteros MD [address] [place] [phone] Lordosis (Primary Dx) Social History Tobacco Use Types [...] referral to Rehab Services Outpatient Referral Routine Lordosis Ordered: 01/11/2016 documented as of this encounter Visit Diagnoses Diagnosis Lordosis- Primary Lordosis (acquired) (postural) documented in this encounter Care Teams Fellmongering Machine Operator Relationship Specialty Start Date End Date Tevin Quinteros MD PCP - General Emergency Medicine 01/11/16 documented as of this encounter
--- OUTSIDE RECORDS SUMMARY | 2024-12-26 13:52 | XMS_ITS | Encounter Summary ---
Author Organization [facility] Address [address] [place] [phone] Care Team Providers Care Supervisor Instrument Mechanics Name Role Phone Tevin Quinteros MD Primary Care Provider [phone] Encounter Details Date Type Department Care Team (Latest Contact Info) Description 01/11/2016 Transcribed Orders EEG/NEUROPHYSIOLOGY [address] [id number] Nohemi Read MD [address] [place] [phone] Right leg pain (Primary Dx) Social History Tobacco Use [...] as of this encounter Plan of Treatment Not on file documented as of this encounter Visit Diagnoses Diagnosis Right leg pain- Primary Pain in limb documented in this encounter Care Teams Supervisor Instrument Mechanics Relationship Specialty Start Date End Date Tevin Quinteros MD PCP - General Emergency Medicine 01/11/16 documented as of this encounter
--- OUTSIDE RECORDS SUMMARY | 2024-12-26 13:52 | XMS_ITS | Encounter Summary ---
Author Organization [facility] and [facility] Address [address] [place] [phone] Care Team Providers Care Retail Representative Name Role Phone Tevin Quinteros MD Primary Care Provider [phone] Reason for Referral * Consultation (Urgent) - Closed Specialty Diagnoses / Procedures Referred By Contac t Referred To Contact Gastroenterology Diagnoses Abdominal pain, unspecified abdominal location Nadiya Healy PA Phone: tel: fax: [facility] [address] [address] Phone: tel: fax: Referral ID Status Reason Start Date Expiration Date V isits Requested Visits Authorized [id number] Closed Specialty Services Required 07/16/2015 07/15/2016 1 1 Scheduling Instructions Ok to overbook per Dr. Lebron Encounter Details Date Type Department Care Team (Late st Contact Info) Description 07/16/2015 Transcribed Orders [facility] [address] [address] Nadiya Healy PA [address] [place] [address] Abdominal pain, unspecified abdominal location (Primary Dx) Social History Tobacco Use Types [...] Associated Diagnoses Order Schedule Ambulatory referral to Gastroenterology/[facility] Gastroenterology Outpatient Referral Routine Abdominal Pain, Unspecified Abdominal Location Ordered: 07/16/2015 documented as of this encounter Visit Diagnoses Diagnosis Abdominal pain, unspecified abdominal location- Primary documented in this encounter Care Teams Retail Representative Relationship Specialty Start Date End Date Tevin Quinteros MD PCP - General Emergency Medicine 01/11/16 documented as of this encounter
--- OUTSIDE RECORDS SUMMARY | 2024-12-26 13:53 | XMS_ITS | Clinical Summary ---
Author Organization [facility] Address [address] [place] [address] Care Team Providers Care Debeaker Name Role Phone Unavailable Primary Care Provider [...] of 3 - 19+ 3-dose series) 10/1992 Pneumococcal Vaccines 50+ (1 of 1 - PCV) 12/15/2023 Zoster (Shingles) Vaccine (1 of 2) 12/15/2023 COVID-19 Vaccine ( - 2023- season) 2024 RSV Vaccine 50 years and old er and Patients (1 - 1-dose 75+ series) 2048
--- OUTSIDE RECORDS SUMMARY | 2024-12-26 13:53 | XMS_ITS | Clinical Summary ---
Author Organization [facility] [address] [place] [address] [place] [phone] Phone Care Team Providers Care Duplicator Punch Set Up Operator Name Role Phone Patrick Pena MD Primary Care Provider [phone] Allergies Active Allergy Reactions Criticality Noted Date [...] Inject 1 Device as directed as needed (anaphylaxis). Use as directed 4 Active diclofenac (Voltaren Arthritis Pain) 1 % topical gel Apply 2 g topically 4 (four) times a day. 150 g 1 5 Active omeprazole (PriLOSEC) [address] capsule Take 1 capsule (40 mg total) by mouth 1 (one) time each day. Do not crush or chew. 90 each 1 5 Active albuterol HFA (PROAIR HFA ; PROVENTIL HFA ; VENTOLIN HFA) 90 mcg/actuation inhalerIndicatio ns:Mild intermittent asthma without complication Inhale 2 puffs by mouth every 4 (four) hours if needed for wheezing. Inhale 2 Puffs into the lungs every 4 hours as needed for Cough or Shortness of Breath. 6.7 g 2 5 Active varenicline tartrate (CHANTIX GARRETT) 0.5 mg (11)- 1 mg (42) tablet Use as directed on package instructions, try to quit smoking after 1 week. 53 tablet 5 02/08/19 26 Active Additional Information Patient not taking.Reported on 12/15/2024 aspirin 81 mg EC tablet Take 1 tablet (81 mg total) by mouth 1 (one) time each day. 90 tablet 1 5 Active LORazepam (ATIVAN) 0.5 mg tablet Take 1 tablet (0.5 mg total) by mouth every 8 (eight) hours if needed for anxiety (severe). Max Daily Amount: 1.5 mg 15 tablet 5 Active Active Problems Problem Noted Date Diagnosed Date Gastroesophageal reflux dise ase with esophagitis without hemorrhage 11/10/2024 De Quervain's tenosynovitis, left 10/07/2024 Chronic right-sided low back pain with right-corry [...] Encounters Date Type Department Care Team Description 12/15/2024 11:00 AM EST Consult Vascular Surgery - [address] [place] [phone] Elaine Edgar PA Leg swelling (Primary Dx); Pain in toes of both feet; PAD (peripheral artery disease) ([facility] V24); Polyneuropathy associated with underlying disease ([facility] V24) 11/10/2024 9:00 AM EDT Office Visit Adult Medicine [address] [address] Patrick Pean MD Precordial chest pain (Primary Dx); Chest pain, unspecified type; Abnormal EKG; Cigarette smoker; Eosinophilic esophagitis; Gastroesophageal reflux disease with esophagitis without hemorrhage; Anxiety disorder, unspecified type; Mild intermittent asthma without complication 10/07/2024 2:30 PM EDT Evaluation [facility] Occupational Therapy [address] [address] Elsie Denis, SARA De Quervain's tenosynovitis, left 10/07/2024 Plan of Care Documentation [facility] [address] [address] from Last 3 Months Surgical History Surgery Date Site/Laterality Comments SECTION 1989 PROCEDURE: HISTORICAL ; COMMENT: 1992, 1999 PARTIAL HYSTERECTOMY 2005 PROCEDURE: CA SUPRACERVICAL ABDL HYSTER W/WO RMVL TUBE OVARY CHOLECYSTECTOMY 2000 PROCEDURE: LAPAROSCOPY, CHOLECYSTECTOMY TUBAL LIGATION PROCEDURE: HISTORICAL TUBAL LIGATION CARPAL TUNNEL RELEASE Right ELBOW SURGERY Right Medical History Medical History Date Comments Sciatic [...] Tobacco: Never Alcohol Use Standard Drinks/Week Comments Never 0 (1 standard drink = 0.6 oz pur e alcohol) Comments Unknown Sex and Gender Information Value Date Recorded Sex Assigned at Female 10/07/2024 3:02 PM EDT Legal Sex Female 10:17 PM EST Gender Identity Female 10/07/2024 3:02 PM EDT Sexual Orientation Choose not to disclose 2024 3:02 PM EDT Obstetrics History Last Filed Vital Signs Vital Sign Reading Time Taken Comments Blood Pressure 125/82 12/15/2024 11:00 AM EST Pulse 112 12/15/2024 11:00 AM EST Temperature 35.6 C (96.1 F) 11/10/2024 9:01 AM EDT Respiratory Rate 16 08/13/2024 10:13 AM EDT Oxygen Saturation 95% 08/13/2024 10:13 AM EDT Inhaled Oxygen Concentration - - Weight 67.7 kg (149 lb 3.2 oz) 12/15/2024 11:00 AM EST Height 149.9 cm (4' 11 ) 11/10/2024 9:01 AM EDT Body Mass Index 30.13 11/10/2024 9:01 AM EDT Plan of Treatment Upcoming Encounters Date Type Department Care Team (Late st Contact Info) Description 02/20/2025 7:00 AM EST Ancillary Procedure [facility] [address] [facility] [address] [place] [address] 02/27/2025 7:00 AM EST Ancillary Procedure [facility] [address] [facility] [address] [place] [address] 03/18/2025 10:30 AM EST Office Visit Vascular Surgery - [place] [address] [facility] [address] [place] [address] Elaine Edgar PA [address] [place] [address] 05/07/2025 9:30 AM EDT Office Visit Gastroenterology - [address] [facility] [address] [place] [address] Monik Salgado PA [address] [facility] [address] [place] [address] Health Maintenance Due Date Last Done Comments Breast Cancer Screening 1973 DTaP,Tdap,and Td Vaccines (1 - Tdap) 1992 Hepatitis B Vaccines (1 of 3 - 19+ 3-dose series) 1992 Pneumococcal Vaccine: 50+ Years (1 of 2 - PCV) 1992 Cervical Cancer Screening: P ap Smear 1994 HIV Screening 01/07/2022 Hepatitis C Screening 01/07/2022 Social Influencers of Health Screening 01/07/2022 RSV Immunization Adult Patients (1 - Risk 50-74 years 1-dose series) 12/15/2023 Zoster Vaccines (1 of 2) 12/15/2023 Depression Screening 02/06/2024 COVID-19 Vaccine (4 - 2024-2 6 season) 2024 01/07/2021, 07/02/2020, 06/04/2020 Influenza Vaccine (#1) 2024 02/21/2017 Cholesterol Screening [...] on patient's age to complete this topic Goals Goal Patient Goal Type Associated Problems Recent Progress Patient-Stated? Author <enter goal here> General Yes Elsie Denis OT Note: OT PATIENT GOAL HAVE NO PAIN LEFT HAND WITH DAILY ACTIVITIES OT STGS 6 TO 8 VISITS General No Elsie Denis OT Note: # 1 NO VISIBLE EDEMA # 2 INCORPORATE POSTURAL AWARENESS AND STRETCHING INTO DAILY REGIME TO HAVE EQUAL SCAPULA POSITION AT REST # 3 IMPROVE LEFT SUPINATION FROM 50 TO 70 DEGREES TO RECEIVE ITEMS INTO PALM # 4 IMPROVE WRIST EXTENSION FROM 30 TO 60 DEGREES WITH GOOD STRENGTH TO WEIGHT BEAR # 5 IMPROVE LEFT THUMB EXTENSION FROM 45 TO 55 DEGREES UPON REACH # 6 IMPROVE LEFT HEALTH AND HUMAN PERFORMANCE PROFESSOR FROM 21 TO 30 POUNDS = 75 PERCENT OF THE RIGHT Procedures Procedure Name Priority Date/Time Associated Diagnosis Comments ECG 12-LEAD Routine 11/10/2024 9:14 AM EDT Chest pain, unspecified type COLONOSCOPY Routine 06/08/2023 LIPID PANEL Routine 10/10/2019 from Last 3 Months or Most Recently Relevant to Health Maintenance Results * ECG 12 lead (11/10/2024 9:14 AM EDT) Narrative Patrick Pena MD - 11/10/2024 9:14 AM EDT T wave inversions in inferolateral leads. Patrick Pena MD ECG ORDERABLES Final Resul t * Colonoscopy (06/08/2023) Colonoscopy no interpretation , abstracted Anatomical Region Laterality Modality Other [facility] Provider MD HEALTH MAINTENANCE Final Result * (ABNORMAL) Lipid panel (10/10/2019) LDL/HDL Ratio 6(A) 0 - 4 Triglycerides 342(A) 0 - 150 mg/dL Cholesterol 186 0 - 200 mg/dL HDL 33(A) >=40 mg/dL LDL Cholesterol 85 0 - 100 mg/dL Blood Venous blood specimen / Unknown Historical Provider LAB BLOOD ORDERABLES Brooke whitley Result from Last 3 Months or Most Recently Relevant to Health Maintenance Insurance [facility] [employer] Care Teams Duplicator Punch Set Up Operator Relationship Specialty Start Date End Date Patrick Pena MD [address] [place] [address] PCP - General Internal Medicine 09/21/21
== END 2024-12-26 13:34 | disposition home or self-care (01) ==
LOC: HO.NEURO 13:33
PROVIDERS: PCP Internal Medicine
DX: G56.22 Lesion of ulnar nerve, left upper limb (principal); R20.0 Anesthesia of skin
CPT/HCPCS: 95886; 95909

== ENCOUNTER → 2024-12-26 13:36 | Outpatient (BNV) | payer OTHER, SELFPAY | PROVIDERS: PCP Internal Medicine; Visit Provider Physical Medicine & Rehabilitation | DX: G56.02 Carpal tunnel syndrome, left upper limb (principal) | CPT/HCPCS: 95886; 95909 ==